=== PATIENT | male | born 1970 | race African-American/Black ===

== ENCOUNTER 2020-06-24 01:02 | Inpatient (IN) | payer OTHER, SELFPAY ==
[2020-06-24] MEDS ORDERED: Morphine 4 MG/ML VIAL ONE (01:13)
[2020-06-24] MEDS ORDERED: Ondansetron PF 4 MG/2 ML Vial ONE (01:13)
[2020-06-24 01:44] LABS: Hemoglobin 14.6 g/dL (14.0-18.0); Mean Corpuscular HGB CONC 33.3 g/dL (32.0-36.0); Mean Corpuscular Hemoglobin 34.9 pg (27.0-31.0); Mean Platelet Volume 7.4 fL (7.4-10.4); Platelet Count 352 thou/uL (130-400); RBC Distribution Width 12.3 % (11.5-14.5); Red Blood Cell (RBC) Count 4.19 mill/uL (4.70-6.10); White Blood Cell (WBC) Count 14.9 thou/uL (4.8-10.8)
[2020-06-24 01:47] LABS: ALT (SGPT) 11 U/L (8-55); AST (SGOT) 17 U/L (5-34); Albumin 4.1 g/dL (3.5-5.0); Alkaline Phosphatase 85 U/L (40-110); Anion Gap 17 mmol/L (10-20); BUN (Urea Nitrogen) 7 mg/dL (8.9-20.6); Bilirubin, Direct 0.4 mg/dL (0.1-0.3); Calc. Creatinine Clearance 0 mL/min (70-130); Calcium 9.7 mg/dL (7.8-10.44); Carbon Dioxide 25 mmol/L (22-29); Chloride 97 mmol/L (98-107); Estimated GFR-MDRD 80; Glucose 175 mg/dL (70-105); Lipase 16 U/L (8-78); Potassium 3.6 mmol/L (3.5-5.1); Protein, Total 7.6 g/dL (6.0-8.3); Sodium 135 mmol/L (136-145)
[2020-06-24 01:48] LABS: Band 23 % (5-11); Lymphocytes 19 % (21-51); MDiff Complete? YES; Macrocytosis SLIGHT = 6-15 cells (100X) (0-5/hpf); Monocytes 12 % (0-10); Neutrophil 46 % (42-75)
[2020-06-24] MEDS ORDERED: HYDROmorphone 0.5 MG/0.5 ML SYRINGE ONE (01:52)
[2020-06-24] MEDS ORDERED: cefTRIAXone\\ROCEPHIN 1 GM VIAL ONE (02:03)
[2020-06-24] MEDS ORDERED: Azithromycin 500 MG VIAL ONE (02:12)
[2020-06-24] MEDS ORDERED: metroNIDAZOLE 500 MG/100 ML BAG ONE (03:10)
[2020-06-24] MEDS ORDERED: Acetaminophen 500 MG TAB ONE (03:17)
[2020-06-24] MEDS ORDERED: Vancomycin HCl 1.25 GM in Sodium Chloride 0.9% 250 ML 250 ML IVPB SCH (03:30)
--- NOTE | 2020-06-24 03:36 | PDOC.HHP ---
Hospitalist HPI - History of Present Illness abdominal pain History of Present Illness: Case of an 50y/o female with pmhx of drinker and smoker who comes to hospital due to LUQ pain. patient refers he was on his usual state of health until abount a week ago when he started with some nonquantified fever chills and some abdominal pain. he states he thought it was covid 19 for which he went and go tested for covid 19 and was negative. he states then yesterday night he started with LUQ severe pain 10/10 of squezing quality non radiating associated with nausea and vomiting. patient came for evaluation and chest ct showed bilateral pneumonia, left greater than right with a round pneumonia with a foci gas concerning for a pulmonary abscess for which hospitalist was called for further evaluation and management. Hospitalist ROS - Review of Systems All other systems reviewed; all pertinent +/- noted in HPI/Subj Hospitalist History - Past Surgical History Past Surgical History: reports: no pertinent history - Family History Family History: reports: diabetes mellitus, hypertension - Social History Smoking Status: Current every day smoker Alcohol: reports: Heavy Drugs: reports: marijuana Living Situation: With Family - Exam General Appearance: NAD, awake alert Eye: PERRL, anicteric sclera ENT: normocephalic atraumatic, no oropharyngeal lesions Neck: supple, symmetric, no JVD Heart: RRR, no murmur, no gallops Respiratory: CTAB, no wheezes, no rales Gastrointestinal: soft, non-tender, non-distended Extremities: no cyanosis, no clubbing, no edema Skin: normal turgor, no lesions, no rashes Neurological: cranial nerve grossly intact, normal sensation to touch, no weakness Musculoskeletal: normal tone, normal strength, no muscle wasting Psychiatric: normal affect, normal behavior, A&O x 3 Hospitalist Results - Labs Result Diagrams: 06/24/20 01:16 06/24/20 01:16 Lab results: WBC 14.9 thou/uL (4.8-10.8) H 06/24/20 01:16 Hgb 14.6 g/dL (14.0-18.0) 06/24/20 01:16 Hct 44.0 % (42.0-52.0) 06/24/20 01:16 MCV 105.0 fL (78.0-98.0) H 06/24/20 01:16 Plt Count 352 thou/uL (130-400) 06/24/20 01:16 Band Neuts % (Manual) 23 % (5-11) H 06/24/20 01:16 Sodium 135 mmol/L (136-145) L 06/24/20 01:16 Potassium 3.6 mmol/L (3.5-5.1) 06/24/20 01:16 Chloride 97 mmol/L (98-107) L 06/24/20 01:16 Carbon Dioxide 25 mmol/L (22-29) 06/24/20 01:16 BUN 7 mg/dL (8.9-20.6) L 06/24/20 01:16 Creatinine 1.17 mg/dL (0.7-1.3) 06/24/20 01:16 Glucose 175 mg/dL (70-105) H 06/24/20 01:16 Lactic Acid 1.6 mmol/L (0.5-2.2) 06/24/20 01:20 Calcium 9.7 mg/dL (7.8-10.44) 06/24/20 01:16 Total Bilirubin 1.0 mg/dL (0.2-1.2) 06/24/20 01:16 AST 17 U/L (5-34) 06/24/20 01:16 ALT 11 U/L (8-55) 06/24/20 01:16 Alkaline Phosphatase 85 U/L (40-110) 06/24/20 01:16 Troponin I Less than 0.010 ng/mL (< 0.028) 06/24/20 01:16 Serum Total Protein 7.6 g/dL (6.0-8.3) 06/24/20 01:16 Albumin 4.1 g/dL (3.5-5.0) 06/24/20 01:16 Lipase 16 U/L (8-78) 06/24/20 01:16 Hospitalist H&P A/P - Problem (1) Pneumonia Code(s): J18.9 - PNEUMONIA, UNSPECIFIED ORGANISM Status: Acute (2) Lung abscess Code(s): J85.2 - ABSCESS OF LUNG WITHOUT PNEUMONIA Status: Acute (3) Smoker Code(s): F17.200 - NICOTINE DEPENDENCE, UNSPECIFIED, UNCOMPLICATED Status: Acute (4) Alcohol abuse Code(s): F10.10 - ALCOHOL ABUSE, UNCOMPLICATED Status: Acute (5) Nausea & vomiting Code(s): R11.2 - NAUSEA WITH VOMITING, UNSPECIFIED Status: Acute - Plan Plan: case of an 50y/o male with the stated pmhx who present with h/s lung abscess and pneumonia pneumonia / lung abscess / sepsis - wbc 14 increaser HR with chest ct showing pneumonia and possible abscess - spesis bundes started, cultures taken ivfs given, patient started on broad sp ectrum abx - normal LA - on cefepime and vanc - nurse instructor consulted - prn o2 supplememtantion - ivfs - pain management nause vomiting - prn symptomatic tx alcohol abuse - advised to quit - thiamine 100mg - folic acid 1mg - prn ativan smoker - advised to quit
[2020-06-24] MEDS ORDERED: Lorazepam 2 MG/ML VIAL SLOW IVP PRN (03:54)
[2020-06-24] MEDS ORDERED: Calcium Carbonate 500 MG ChewTAB PO PRN (03:54)
[2020-06-24] MEDS ORDERED: Ondansetron ODT 4 MG TAB PO PRN (03:54)
[2020-06-24] MEDS ORDERED: Ondansetron PF 4 MG/2 ML Vial IVP PRN (03:54)
[2020-06-24] MEDS ORDERED: Acetaminophen 650 MG Suppository PR PRN (03:54)
[2020-06-24] MEDS ORDERED: Morphine 4 MG/ML VIAL SLOW IVP PRN (03:54)
[2020-06-24] MEDS: Sodium Chloride 0.9% 1,000 ML IV SCH ×3 (04:58→23:49)
[2020-06-24 05:51] VITALS: BMI 22.3
--- NOTE | 2020-06-24 07:28 | CT ---
PRELIMINARY REPORT/[facility]/EMERGENCY AFTER HOURS PROCEDURE: Receipt of this report by the clinical staff was confirmed with Wilmer Minaya DO by Marilu Roger on Jun 24, 2020 02:00:00 CDT. Addendum electronically signed by Marilu Roger on June 24, 2020 2:00:[address] OF THE ABDOMEN AND PELVIS WITH IV CONTRAST CLINICAL HISTORY: Left upper quadrant pain for one hour. Nausea, vomiting and diarrhea for 3 days. E valuate for obstruction versus pancreatitis. TECHNIQUE: Serial axial images obtained. Sagittal reconstructed images obtained. Coronal reconstructed images obtained. Exam is performed with 100 mL of Isovue-370 intravenous contrast. Per PQRS, CT exam is performed using one or more of the following dose reduction techniques: Automate d exposure control, adjustment of the mA and/or KV according to patient size, or use of iterative rec onstruction techniques. COMPARISON: None FINDINGS: Small bilateral pleural effusions are seen. Small consolidation in the left lower lobe is seen consistent suggesting early pneumonia. Imaging fea tures can be seen with (COVID-19) pneumonia, though are nonspecific and can occur with a variety of i nfectious and noninfectious processes. The liver, gallbladder, pancreas, spleen and bilateral kidneys are unremarkable. Negative for small bowel dilatation. Negative for free air. A normal appendix is seen. The rest of the solid organs, viscera and bones are unremarkable. IMPRESSION: 1. Early pneumonia in the left lower lobe. Small bilateral pleural effusions. Imaging features can be seen with (COVID-19) pneumonia, though are nonspecific and can occur with a variety of infectious an d noninfectious processes. 2. Negative for acute process in the abdomen or pelvis. No CT evidence for acute pancreatitis or manas l obstruction. No CT explanation for patients left upper quadrant pain. ELECTRONICALLY SIGNED BY: Missael Bradford MD Jun 24, 2020 1:54:59 AM CDT This report is intended for review by the ordering physician only, in accordance of law. If you recei ve this report in error, please call [facility] at [phone]. FINAL REPORT EMERGENCY AFTER HOURS CTA ABDOMEN AND PELVIS WITH CONTRAST: FINDINGS/IMPRESSION: I agree with the findings and impression given in the preliminary report per [facility] physici an. 1. No evidence of acute intra-abdominal/pelvic abnormality. 2. There are multifocal infiltrates seen in the right middle lobe and left lower lobe. There is a sm all left pleural effusion. POS: EAA
--- NOTE | 2020-06-24 07:29 | CT ---
PRELIMINARY REPORT/[facility]/EMERGENCY AFTER HOURS PROCEDURE: EXAM: CTA Chest with Intravenous Contrast CLINICAL HISTORY: M50, LUQ ABD PAIN X1 HOUR, N/V/D X3 DAYS. Eval obstruction v pancreatitis. TECHNIQUE: Axial CTA images of the chest with intravenous contrast. Three-dimensional MIP/volume rendered reform ations were performed. CONTRAST: With; ISOVUE 370,100mL COMPARISON: CT - CT ABDOMEN PELVIS W CON - 06/24/2020 01:29 AM CDT FINDINGS: PULMONARY ARTERIES There is no intraluminal filling defect suspicious for PE. AORTA No thoracic aortic aneurysm or dissection. LUNGS 3.3 cm mass in the left lower lobe with a focus of gas at the anterior aspect. Patchy solid opacities at the left lung base as well as in the right middle lobe which are suspicious for pneumonia. PLEURAL SPACES Small to moderate left pleural effusion. Trace right pleural effusion. HEART AND MEDIASTINUM No cardiomegaly. No significant pericardial effusion. LYMPH NODES No lymphadenopathy. BONES No focal osseous abnormality or acute fracture. CHEST WALL AND UPPER ABDOMEN Images through the upper abdomen are unremarkable. The chest wall is unremarkable. IMPRESSION: No pulmonary embolism. No thoracic aortic aneurysm or dissection. Patchy solid opacities at the left lung base as well as in the right middle lobe which are suspicious for pneumonia. 3.3 cm mass in the left lower lobe with a focus of gas at the anterior aspect. The diagnosis include s round pneumonia, cavitary lesion and/or neoplasm. Follow-up imaging is recommended in order to ens ure resolution. ELECTRONICALLY SIGNED BY: Avril Foster MD Jun 24, 2020 2:45:30 AM CDT This report is intended for review by the ordering physician only, in accordance of law. If you recei ve this report in error, please call [facility] at [phone]. FINAL REPORT EMERGENCY AFTER HOURS CTA OF THE CHEST WITH CONTRAST: FINDINGS/IMPRESSION: I agree with the findings and impression given in the preliminary report per [facility] physici an. 1. There is consolidation in the right middle lobe and left lower lobe consistent with multifocal pn eumonia. There is a round area containing gas in the left lower lobe which may represent a cavitary a bscess. There is a small adjacent pleural effusion. 2. No pulmonary thromboembolism seen on this limited exam secondary to poor timing of the contrast b olus. POS: EAA
--- NOTE | 2020-06-24 07:46 | RAD ---
EXAM: XR Chest 1 View Portable PROVIDED CLINICAL HISTORY: Left upper quadrant and epigastric pain COMPARISON: None FINDINGS: The cardiac silhouette is normal in terms of size. There is left basilar consolidation with elevation of the left hemidiaphragm and left pleural fluid. The right lung appears clear. There is no evidence for pneumothorax. IMPRESSION: Left basilar pneumonia with associated pleural effusion. Please correlate with subsequently performed CT examination.
[2020-06-24] MEDS ORDERED: Loratadine 10 MG TAB PO PRN (07:54)
[2020-06-24] MEDS ORDERED: Loperamide HCl 2 MG CAP PO PRN (07:54)
[2020-06-24] MEDS ORDERED: Zolpidem Tartrate 5 MG TAB PO PRN (07:54)
[2020-06-24] MEDS ORDERED: Sodium Chloride 0.65% Nasal 44 ML BOT EA NARE PRN (07:54)
[2020-06-24] MEDS ORDERED: hydrALAZINE 20 MG/ML VIAL SLOW IVP PRN (07:54)
[2020-06-24] MEDS ORDERED: Cepastat Lozenges 1 LOZ PO PRN (07:54)
[2020-06-24] MEDS: Thiamine 100 MG TAB PO SCH (08:30)
[2020-06-24] MEDS: Cefepime 2 GM in Sodium Chloride 0.9% 100 ML IVPB SCH ×2 (08:30→22:06)
[2020-06-24] MEDS: Folic Acid 1 MG TAB PO SCH (08:30)
[2020-06-24] MEDS: Enoxaparin Sodium 40 MG/0.4 ML SYRINGE SC SCH (08:31)
[2020-06-24] MEDS ORDERED: Vancomycin 1 GM in Premix Bag 1 BAG IVPB SCH (09:00)
--- NOTE | 2020-06-24 10:50 | PDOC.HOSPP ---
- Subjective Encounter Date: 06/24/20 Encounter Time: 08:50 Subjective: Patient has left-sided pleuritic chest pain, patient has cough and fever. - Objective Vital Signs & Weight: Vital Signs (12 hours) Temp Pulse Resp BP Pulse Ox 06/24/20 08:20 96 06/24/20 07:33 99.3 F 103 H 14 124/84 96 06/24/20 05:00 97 06/24/20 04:38 100.1 F H 105 H 20 136/87 97 Weight Weight 146 lb 12.8 oz Result Diagrams: 06/24/20 01:16 06/24/20 01:16 Radiology Reviewed by me: Yes Hospitalist ROS - Review of Systems Constitutional: reports: fever, weakness. denies: chills, sweats, malaise, other Respiratory: reports: cough, SOB with excertion, pleuritic pain. denies: dry, shortness of breath, hemoptysis, sputum, wheezing, other Cardiovascular: denies: chest pain, palpitations, orthopnea, paroxysmal noc. dyspnea, edema, light headedness, other Gastrointestinal: denies: nausea, vomiting, abdominal pain, diarrhea, constipation, melena, hematochezia, other Genitourinary: denies: dysuria, frequency, incontinence, hematuria, retention, other Musculoskeletal: denies: neck pain, shoulder pain, arm pain, back pain, hand pain, leg pain, foot pain, other - Medication Medications: Active Medications Generic Name Dose Route Start Last Admin Trade Name Freq PRN Reason Stop Dose Admin Enoxaparin Sodium 40 mg 06/24/20 09:00 06/24/20 08:31 Enoxaparin Sodium 40 Mg/0.4 Ml Syringe SC 40 mg 0900 ROSALES Administration Folic Acid 1 mg 06/24/20 09:00 06/24/20 08:30 Folic Acid 1 Mg Tab PO 1 mg DAILY ROSALES Administration Sodium Chloride 1,000 mls @ 70 mls/hr 06/24/20 04:15 06/24/20 04:58 Normal Saline 0.9% IV 1,000 mls .[id number] ROSALES Administration Cefepime HCl 2 gm/ Sodium 100 mls @ 200 mls/hr 06/24/20 09:00 06/24/20 08:30 Chloride IVPB 100 mls Q12HR ROSALES Administration Sodium Chloride 10 ml 06/24/20 09:00 06/24/20 08:31 Flush - Normal Saline 10 Ml Syringe IVF Not Given Q12HR ROSALES Thiamine HCl 100 mg 06/24/20 09:00 06/24/20 08:30 Thiamine 100 Mg Tab PO 100 mg DAILY ROSALES Administration - Exam General Appearance: NAD, awake alert Eye: PERRL, anicteric sclera ENT: normocephalic atraumatic, no oropharyngeal lesions Neck: supple, symmetric, no JVD, no thyromegaly Heart: RRR, no murmur, no gallops, no rubs Respiratory: no wheezes Respiratory - other findings: Left-sided basilar rales Gastrointestinal: soft, non-tender, non-distended, normal bowel sounds Extremities: no cyanosis, no clubbing, no edema Skin: normal turgor, no lesions Neurological: no focal deficits Musculoskeletal: normal tone, normal strength Psychiatric: normal affect, normal behavior Hosp A/P (1) Sepsis Code(s): A41.9 - SEPSIS, UNSPECIFIED ORGANISM Status: Acute Qualifiers: Sepsis type: sepsis due to unspecified organism Sepsis acute organ dysfu nction status: without acute organ dysfunction Qualified Code(s): A41.9 - Sepsis, unspecified organism (2) Left lower lobe pneumonia Code(s): J18.9 - PNEUMONIA, UNSPECIFIED ORGANISM Status: Acute Qualifiers: Pneumonia type: due to unspecified organism Qualified Code(s): J18.9 - Pneumonia, unspecified organism (3) Lung abscess Code(s): J85.2 - ABSCESS OF LUNG WITHOUT PNEUMONIA Status: Acute Qualifiers: Pulmonary abscess pneumonia presence: with pneumonia Laterality: left Lung location: lower lobe of lung Qualified Code(s): J85.1 - Abscess of lung with pneumonia (4) Tobacco abuse disorder Code(s): Z72.0 - TOBACCO USE Status: Chronic (5) Alcohol abuse Code(s): F10.10 - ALCOHOL ABUSE, UNCOMPLICATED Status: Chronic - Plan old records reviewed/req, continue antibiotics, respiratory therapy, DVT proph w/lovenox Plan Continue cefepime and vancomycin Continue IV fluid Pulmonology has been consulted Repeat labs tomorrow Follow-up on COVID-19 test result Medication reviewed and continue provide symptomatic and supportive care. Counseling provided to avoid alcohol and tobacco abuse Start diet
[2020-06-24 11:09] LABS: SARS-CoV-2 MS2 Positive; SARS-CoV-2 N Gene Negative; SARS-CoV-2 S Gene Negative; SARS-CoV-2 by NAA Not Detected (NotDetected); SARS-CoV-2 orf1ab Negative
[2020-06-24] MEDS: HYDROcodone/Acetaminophen 10/325 mg Tablet PO PRN ×3 (12:42→23:45)
[2020-06-24 15:19] LABS: Bacteria/HPF None Seen HPF (None Seen); Bilirubin Negative (Negative); Blood, Urine Negative (Negative); Clarity Clear (Clear); Glucose, Urine (Dipstick) Normal (Negative); Ketone, Urine Trace mg/dL (Negative); Leukocyte Negative Leu/uL (Negative); Nitrite Negative (Negative); Protein, Urine (Dipstick) 30 mg/dL (Neg-Trace); RBC/HPF 0-3 HPF (0-3); Squamous Epithelial None Seen HPF (0-3); WBC/HPF 0-3 HPF (0-3)
[2020-06-24 15:21] LABS: Urine Culture Reflex No No
[2020-06-24] MEDS ORDERED: methylPREDNISolone Sod Succ/PF 125 MG/2 ML VIAL IVP SCH (18:45)
[2020-06-24] MEDS: Acetaminophen 325 MG TAB PO PRN (19:38)
[2020-06-24] MEDS: Diabetic Tussin 200 MG/10 ML UDCUP PO PRN (23:45)
[2020-06-24] MEDS: Vancomycin 1 GM in Premix Bag 1 BAG IVPB SCH (23:45)
[2020-06-24] MEDS: Senokot S 8.6-50 MG TAB PO PRN (23:45)
--- NOTE | 2020-06-25 01:04 | CON ---
DATE OF CONSULTATION: 06/24/2020 HISTORY OF PRESENT ILLNESS: Mr. Mancilla is a 50-year-old male. 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 He presented with complaints of pleuritic chest discomfort, fever, chills, and cough. He has screened for COVID and was negative. Chest radiograph shows findings consistent with a lung abscess in his left lower lobe. He admits to "partying hard." He drinks 5/7 nights a week. PAST MEDICAL HISTORY: Otherwise unremarkable. SOCIAL HISTORY: He is a smoker and a heavy drinker. He declined to comment on how much he drank in the evening and uses marijuana. FAMILY HISTORY: Negative for lung disease. Positive for diabetes and hypertension. REVIEW OF SYSTEMS: Otherwise negative. PHYSICAL EXAMINATION: GENERAL: A pleasant gentleman. He has poor dentition. VITAL SIGNS: Temperature is 102.9, heart rates 114 with his fever, respiratory rate is 18, oximetry is 93% on room air, blood pressure 130/90. HEENT: Pupils are equal. Sclerae anicteric. NECK: Supple. No lymphadenopathy. LUNGS: Clear. HEART: Regular rhythm. S1, S2 are normal. ABDOMEN: Soft and nontender. EXTREMITIES: Without clubbing, cyanosis, or edema. IMPRESSION: Lung abscess, likely secondary to either his poor dentition or more likely his heavy alcohol intake on a weekly basis. We had a long discussion about this. He says he is feeling better than when he was admitted, arguing that even though he is still febrile, his antibiotic choice is appropriate. We will give him a dose of steroids, which will help with his pleurisy as he says he cannot take a deep breath. Follow the other physicians caring for him. TIME SPENT: This is a 50-minute consult, 50% of the time spent on the unit coordinating care. Job ID: [id number] [facility]
[2020-06-25] MEDS: Benzonatate 100 MG CAP PO PRN (04:53)
[2020-06-25 06:40] LABS: ALT (SGPT) 11 U/L (8-55); AST (SGOT) 27 U/L (5-34); Albumin 3.2 g/dL (3.5-5.0); Alkaline Phosphatase 70 U/L (40-110); Anion Gap 12 mmol/L (10-20); BUN (Urea Nitrogen) 7 mg/dL (8.9-20.6); Bilirubin, Total 0.6 mg/dL (0.2-1.2); Calc. Creatinine Clearance 98 mL/min (70-130); Calcium 9.3 mg/dL (7.8-10.44); Carbon Dioxide 27 mmol/L (22-29); Chloride 101 mmol/L (98-107); Estimated GFR-MDRD Greater than 90; Globulin 3.5 g/dL (2.4-3.5); Glucose 136 mg/dL (70-105); Potassium 3.9 mmol/L (3.5-5.1); Protein, Total 6.7 g/dL (6.0-8.3); Sodium 136 mmol/L (136-145)
[2020-06-25 06:48] LABS: Hemoglobin 13.2 g/dL (14.0-18.0); Mean Corpuscular HGB CONC 33.4 g/dL (32.0-36.0); Mean Corpuscular Hemoglobin 35.5 pg (27.0-31.0); Mean Platelet Volume 7.4 fL (7.4-10.4); Platelet Count 356 thou/uL (130-400); RBC Distribution Width 12.3 % (11.5-14.5); Red Blood Cell (RBC) Count 3.73 mill/uL (4.70-6.10); White Blood Cell (WBC) Count 20.2 thou/uL (4.8-10.8)
[2020-06-25 06:49] LABS: Band 20 % (5-11); Lymphocytes 8 % (21-51); MDiff Complete? YES; Monocytes 9 % (0-10); Myelocyte 1 % (0-0); Neutrophil 62 % (42-75)
[2020-06-25] MEDS: HYDROcodone/Acetaminophen 10/325 mg Tablet PO PRN ×2 (09:21→17:47)
[2020-06-25] MEDS: Cefepime 2 GM in Sodium Chloride 0.9% 100 ML IVPB SCH (09:22)
[2020-06-25] MEDS: Folic Acid 1 MG TAB PO SCH (09:22)
[2020-06-25] MEDS: Enoxaparin Sodium 40 MG/0.4 ML SYRINGE SC SCH (09:22)
[2020-06-25] MEDS: Thiamine 100 MG TAB PO SCH (09:22)
[2020-06-25 10:20] LABS: Vancomycin, Trough 6.9 ug/mL
[2020-06-25] MEDS ORDERED: metroNIDAZOLE 500 MG in Premix Bag 1 BAG IVPB SCH (11:00)
[2020-06-25] MEDS: Vancomycin 1 GM in Premix Bag 1 BAG IVPB SCH (11:57)
[2020-06-25] MEDS ORDERED: Vancomycin 1 GM in Premix Bag 1 BAG IVPB SCH (12:00)
[2020-06-25] MEDS ORDERED: Meropenem 1 GM in Sodium Chloride 0.9% 100 ML IVPB SCH (14:00)
[2020-06-25 14:48] LABS: HBSAg Index 0.21 S/CO (0-0.99); HIV (1/2) Antibody/Antigen Non-Reactive (NonReactive); HIV 1/2 INDEX 0.21 S/CO (<1.00); Hep B Surf Ag Non-Reactive S/CO (NonReactive); Hep C IgG Ab Non-Reactive (NonReactive)
[2020-06-25] MEDS: MEROPENEM 1 GM/50 ML 1 GM in Premix Bag 1 BAG IVPB SCH ×2 (14:54→21:30)
--- NOTE | 2020-06-25 15:04 | CON ---
DATE OF CONSULTATION: 06/25/2020 REASON FOR CONSULTATION: Lung abscess. HISTORY OF PRESENT ILLNESS: A 50-year-old, who has a history that is fairly unremarkable with no past medical issues or surgical issues. He drinks almost daily and smokes daily and was well until about 6 to 7 days before admission, when he developed a fever, general malaise, and cough with some sputum production, but no hemoptysis. Some general malaise. No abdominal pain. No genitourinary symptoms. No joint symptoms or neurological symptoms. No headaches. MEDICAL HISTORY: Negative. SURGICAL HISTORY: Negative. 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 He smokes daily. He drinks 5 out of 7 days of the week. He is heterosexual. ALLERGIES: NONE. FAMILY HISTORY: Noncontributory. He grew up in this town. PHYSICAL EXAMINATION: VITAL SIGNS: Temperature has remained high anywhere from 100.1 to 102.9, pulse 101, respirations 16, O2 saturation 90 to 97. SKIN: Normal. The patient has peripheral IV access. Voiding in the toilet. No lymphadenopathy. HEENT: Ocular movements conjugate. Oral cavity with quite a few teeth in place and with a few areas of decay. Few missing teeth in the upper maxilla. Oral cavity otherwise normal. NECK: Supple. LUNGS: Diminished breath sounds in the left base, few crackles there. No wheezing. HEART: S1 and S2, regular rate. No S3 or S4. ABDOMEN: Soft. Not distended or tender. No ascites. No bladder distention. : No genital abnormalities. MUSCULOSKELETAL: No joint inflammatory activity. No edema. Pulses 1+ in dorsalis pedis. Plantar responses are flexor. Moves all extremities equally. NEUROLOGIC: Cognitive function appears to be intact. LABORATORY DATA: White cell count started at 14.9, is up to 20.2; hemoglobin 14; platelets 352; with 22% bands and now still 20% bands. Creatinine 0.86. Liver profile normal. Albumin down from 4.1 to 3.2. Lipase 16. Urinalysis was normal. Vancomycin trough 6.9. SARS-CoV-2 PCR negative. The patient had a chest CT on admission and it showed consolidation in right middle lobe and left lower lobe consistent with multifocal pneumonia, round area containing gas in the left lower lobe which may represent a cavitary abscess. Abdomen and pelvis CT was also done and it showed again the lung findings, but nothing else in the abdomen or pelvis. No evidence of pancreatitis. ASSESSMENT: Pneumonia with lung abscess in left lower lobe in the setting of possible alcohol dependence syndrome. DISCUSSION: The differential diagnosis includes anaerobic lung abscess versus gram-negative phillip associated lung abscess including the possibility of Klebsiella pneumoniae. Staphylococcus aureus abscess/MRSA is less likely since usually those patients are bacteremic, although the blood cultures are still pending. At this point, we will switch him to meropenem, discontinue vancomycin and Flagyl, and he may develop an empyema on the left side and may need decortication depending on clinical and radiological progress. Other than that, he will need long-term therapy, initially IVs and then transition to oral administration of treatment. Check HIV and hepatitis serology and RPR. Job ID: [id number]
[2020-06-25 15:22] LABS: Syphilis Antibody Nonreactive (Nonreactive); Syphilis Antibody Index 0.02 S/CO (<1.00 Non-Reactive)
--- NOTE | 2020-06-25 15:48 | PDOC.HOSPP ---
- Subjective Encounter Date: 06/25/20 Subjective: Hosp A/P (1) Sepsis Code(s): A41.9 - SEPSIS, UNSPECIFIED ORGANISM Status: Acute Qualifiers: Sepsis type: sepsis due to unspecified organism Sepsis acute organ dysfunction status: without acute organ dysfunction Qualified Code(s): A41.9 - Sepsis, unspecified organism (2) Left lower lobe pneumonia Code(s): J18.9 - PNEUMONIA, UNSPECIFIED ORGANISM Status: Acute Qualifiers: Pneumonia type: due to unspecified organism Qualified Code(s): J18.9 - Pneumonia, unspecified organism (3) Lung abscess Code(s): J85.2 - ABSCESS OF LUNG WITHOUT PNEUMONIA Status: Acute Qualifiers: Pulmonary abscess pneumonia presence: with pneumonia Laterality: left Lung location: lower lobe of lung Qualified Code(s): J85.1 - Abscess of lung with pneumonia (4) Tobacco abuse disorder Code(s): Z72.0 - TOBACCO USE Status: Chronic (5) Alcohol abuse Code(s): F10.10 - ALCOHOL ABUSE, UNCOMPLICATED Status: Chronic - Plan Patient remains febrile and leukocytosis is worsening. His current IV antibiotic coverage did not include anaerobes which are a likely culprit in lung abscess. Antibiotics were changed to IV meropenem. Appreciate ID. - Objective Vital Signs & Weight: Vital Signs (12 hours) Temp Pulse Resp BP Pulse Ox 06/25/20 15:35 101.0 F H 109 H 15 148/89 H 91 L 06/25/20 12:00 99.8 F H 101 H 16 135/91 H 90 L 06/25/20 09:00 97 06/25/20 07:34 101.1 F H 104 H 17 148/99 H 97 06/25/20 04:45 99.5 F 101 H 28 H 137/92 H 98 Weight Admit Weight 146 lb 12.8 oz Weight 146 lb 12.8 oz I&O: 06/24/20 06/25/20 06/26/20 06:59 06:59 06:59 Intake Total 5240 Balance 5240 Result Diagrams: 06/25/20 05:41 06/25/20 05:41 Hospitalist ROS - Medication Medications: Active Medications Generic Name Dose Route Start Last Admin Trade Name Freq PRN Reason Stop Dose Admin Acetaminophen 650 mg 06/24/20 03:54 06/24/20 19:38 Acetaminophen 325 Mg Tab PO 650 mg Q4H PRN Administration Headache/Fever/Mild Pain (1-3) Hydrocodone Bitart/Acetaminophen 1 tab 06/24/20 03:54 06/25/20 09:21 Hydrocodone/Acetaminophen 10/325 Mg Tablet PO 1 tab Q4H PRN Administration Moderate Pain (4-6) Hydrocodone Bitart/Acetaminophen 2 tab 06/24/20 03:54 06/24/20 17:09 Hydrocodone/Acetaminophen 10/325 Mg Tablet PO 2 tab Q4H PRN Administration Severe Pain (7-10) Benzonatate 100 mg 06/24/20 07:54 06/25/20 04:53 Benzonatate 100 Mg Cap PO 100 mg Q6H PRN Administration Cough Enoxaparin Sodium 40 mg 06/24/20 09:00 06/25/20 09:22 Enoxaparin Sodium 40 Mg/0.4 Ml Syringe SC 40 mg 0900 ROSALES Administration Folic Acid 1 mg 06/24/20 09:00 06/25/20 09:22 Folic Acid 1 Mg Tab PO 1 mg DAILY ROSALES Administration Guaifenesin 200 mg 06/24/20 07:54 06/24/20 23:45 Diabetic Tussin 200 Mg/10 Ml Udcup PO 200 mg Q4H PRN Administration Cough Sodium Chloride 1,000 mls @ 70 mls/hr 06/24/20 04:15 06/24/20 23:49 Normal Saline 0.9% IV 1,000 mls .[id number] ROSALES Administration Meropenem 1 gm/ Device 50 mls @ 100 mls/hr 06/25/20 14:00 06/25/20 14:54 IVPB 50 mls Q8HR ROSALES Administration Senna/Docusate Sodium 2 tab 06/24/20 07:54 06/24/20 23:45 Senokot S 8.6-50 Mg Tab PO 2 tab BID PRN Administration Constipation Sodium Chloride 10 ml 06/24/20 09:00 06/25/20 09:23 Flush - Normal Saline 10 Ml Syringe IVF Not Given Q12HR ROSALES Thiamine HCl 100 mg 06/24/20 09:00 06/25/20 09:22 Thiamine 100 Mg Tab PO 100 mg DAILY ROSALES Administration
--- NOTE | 2020-06-25 17:09 | PRG ---
DATE OF SERVICE: 06/25/2020 Nikhil Mancilla continues to have temperature spikes, but the trend overall is downward. Providing clindamycin, although it could be that he just will have a slow resolution of his febrile state. He does say that he is feeling better. P.o. clindamycin or Augmentin will be a reasonable choices for him once he is afebrile, but I would continue IV antibiotics for now. We will continue to follow up. Job ID: [id number]
[2020-06-25] MEDS: Clindamycin/D5W 900 MG in Premix Bag 1 BAG IVPB SCH (17:42)
[2020-06-25] MEDS: Sodium Chloride 0.9% 1,000 ML IV SCH (17:47)
[2020-06-25] MEDS: Acetaminophen 325 MG TAB PO PRN (19:56)
[2020-06-26] MEDS: Acetaminophen 325 MG TAB PO PRN ×4 (00:08→19:57)
[2020-06-26] MEDS: Senokot S 8.6-50 MG TAB PO PRN (00:08)
[2020-06-26] MEDS: Sodium Chloride 0.9% 1,000 ML IV SCH ×2 (00:41→15:31)
[2020-06-26] MEDS: Clindamycin/D5W 900 MG in Premix Bag 1 BAG IVPB SCH ×3 (01:23→17:04)
[2020-06-26] MEDS: HYDROcodone/Acetaminophen 10/325 mg Tablet PO PRN ×2 (05:22→13:31)
[2020-06-26] MEDS: Benzonatate 100 MG CAP PO PRN ×2 (05:22→19:58)
[2020-06-26] MEDS: MEROPENEM 1 GM/50 ML 1 GM in Premix Bag 1 BAG IVPB SCH ×3 (05:24→21:38)
[2020-06-26] MEDS: Enoxaparin Sodium 40 MG/0.4 ML SYRINGE SC SCH (08:09)
[2020-06-26] MEDS: Thiamine 100 MG TAB PO SCH (08:10)
[2020-06-26] MEDS: Folic Acid 1 MG TAB PO SCH (08:10)
--- NOTE | 2020-06-26 13:27 | PDOC.HOSPP ---
- Subjective Encounter Date: 06/26/20 Subjective: Patient remains febrile and tachycardic. He still complaining of pleuritic chest pain. - Objective Vital Signs & Weight: Vital Signs (12 hours) Temp Pulse Resp BP BP Pulse Ox 06/26/20 13:17 101.6 F H 108 H 06/26/20 12:00 100.6 F H 120 H 17 132/92 H 96 06/26/20 10:58 101.2 F H 06/26/20 10:57 101.2 F H 06/26/20 08:06 108 H 144/98 H 06/26/20 08:00 93 L 06/26/20 07:43 99.2 F 108 H 17 149/100 H 93 L 06/26/20 04:31 98.1 F 122 H 18 162/98 H 95 Weight Admit Weight 146 lb 12.8 oz Weight 146 lb 12.8 oz I&O: 06/25/20 06/26/20 06/27/20 06:59 06:59 06:59 Intake Total 5240 2850 Balance 5240 2850 Result Diagrams: 06/25/20 05:41 06/25/20 05:41 Hospitalist ROS - Medication Medications: Active Medications Generic Name Dose Route Start Last Admin Trade Name Freq PRN Reason Stop Dose Admin Acetaminophen 650 mg 06/24/20 03:54 06/26/20 10:58 Acetaminophen 325 Mg Tab PO 650 mg Q4H PRN Administration Headache/Fever/Mild Pain (1-3) Hydrocodone Bitart/Acetaminophen 1 tab 06/24/20 03:54 06/26/20 05:22 Hydrocodone/Acetaminophen 10/325 Mg Tablet PO 1 tab Q4H PRN Administration Moderate Pain (4-6) Hydrocodone Bitart/Acetaminophen 2 tab 06/24/20 03:54 06/24/20 17:09 Hydrocodone/Acetaminophen 10/325 Mg Tablet PO 2 tab Q4H PRN Administration Severe Pain (7-10) Benzonatate 100 mg 06/24/20 07:54 06/26/20 05:22 Benzonatate 100 Mg Cap PO 100 mg Q6H PRN Administration Cough Enoxaparin Sodium 40 mg 06/24/20 09:00 06/26/20 08:09 Enoxaparin Sodium 40 Mg/0.4 Ml Syringe SC 40 mg 0900 ROSALES Administration Folic Acid 1 mg 06/24/20 09:00 06/26/20 08:10 Folic Acid 1 Mg Tab PO 1 mg DAILY ROSALES Administration Guaifenesin 200 mg 06/24/20 07:54 06/24/20 23:45 Diabetic Tussin 200 Mg/10 Ml Udcup PO 200 mg Q4H PRN Administration Cough Sodium Chloride 1,000 mls @ 70 mls/hr 06/24/20 04:15 06/26/20 00:41 Normal Saline 0.9% IV Not Given .[id number] ROSALES Meropenem 1 gm/ Device 50 mls @ 100 mls/hr 06/25/20 14:00 06/26/20 05:24 IVPB 50 mls Q8HR ROSALES Administration Clindamycin Phosphate/Dextrose 50 mls @ 100 mls/hr 06/25/20 17:00 06/26/20 08:09 900 mg/ Device IVPB 50 mls 0100,0900,1700 ROSALES Administration Senna/Docusate Sodium 2 tab 06/24/20 07:54 06/26/20 00:08 Senokot S 8.6-50 Mg Tab PO 2 tab BID PRN Administration Constipation Sodium Chloride 10 ml 06/24/20 09:00 06/26/20 08:10 Flush - Normal Saline 10 Ml Syringe IVF 10 ml Q12HR ROSALES Administration Thiamine HCl 100 mg 06/24/20 09:00 06/26/20 08:10 Thiamine 100 Mg Tab PO 100 mg DAILY ROSALES Administration - Exam General Appearance: awake alert ENT: normocephalic atraumatic Neck: supple, no JVD Respiratory: normal chest expansion, no tachypnea Neurological: cranial nerve grossly intact, no focal deficits Hosp A/P (1) Sepsis Code(s): A41.9 - SEPSIS, UNSPECIFIED ORGANISM Status: Acute Qualifiers: Sepsis type: sepsis due to unspecified organism Sepsis acute organ dysfunction status: without acute organ dysfunction Qualified Code(s): A41.9 - Sepsis, unspecified organism (2) Lung abscess Code(s): J85.2 - ABSCESS OF LUNG WITHOUT PNEUMONIA Status: Acute Qualifiers: Pulmonary abscess pneumonia presence: with pneumonia Laterality: left Lung location: lower lobe of lung Qualified Code(s): J85.1 - Abscess of lung with pneumonia (3) Nausea & vomiting Code(s): R11.2 - NAUSEA WITH VOMITING, UNSPECIFIED Status: Acute (4) Alcohol abuse Code(s): F10.10 - ALCOHOL ABUSE, UNCOMPLICATED Status: Chronic - Plan The patient has signs of sepsis due to lung abscess like yesterday with aspiration. He is on meropenem and clindamycin. Continue IV fluids. Culture results are pending.
--- NOTE | 2020-06-26 15:30 | PRG ---
DATE OF SERVICE: 06/26/2020 SUBJECTIVE: Mr. Mancilla is still having low-grade temperature elevations. OBJECTIVE: LUNGS: Clear. HEART: Regular rate and rhythm. ABDOMEN: Soft. He still had 20% bands yesterday on his peripheral smear. Clindamycin was added. He appears to be stable. Keep going with current antibiotics as he is feeling little better each day. Job ID: [id number]
--- NOTE | 2020-06-26 16:36 | PRG ---
DATE OF SERVICE: 06/26/2020 SUBJECTIVE: The patient looked as comfortable as he did yesterday. He is having coughing spells intermittently, sometimes with small amounts of blood. A little bit constipated. Maybe a little bit of chest pain after coughing in the left lower anterior chest. No abdominal pain. No diarrhea or genitourinary symptoms. OBJECTIVE: VITAL SIGNS: Still having steady temperature elevation up to 101.6, BP 130/90, heart rate 108, respiratory rate 17, and O2 saturation 96. GENERAL: Awake, alert, oriented, pleasant. LUNGS: With diminished breath sounds in the left base. HEART: S1 and S2, regular rate. ABDOMEN: Soft. Not distended or tender. No ascites. No bladder distention. EXTREMITIES: Moves extremities equally. NEUROLOGIC: His cognitive function is perfectly intact. LABORATORY DATA: White cell count yesterday was at 20.2, hemoglobin 13, platelets 356. Creatinine 0.86. Two sets of blood culture, thus far no growth at 48 hours. We have two sputum samples with gram-negative rods, gram-positive rods in clusters and pairs. There are more than 10 epithelial cells indicating saliva as the sample rather than a proper sample. On the first specimen, there was 0 to 5 epi cells, many WBCs, and there were some gram-positive cocci in clusters. At this point, we will add linezolid to the treatment regimen, and it looks like he does have some gram-positive clusters, that could be meaningful in the face of persistent fever. Job ID: [id number]
[2020-06-26] MEDS: Linezolid 600 MG TAB PO SCH (19:58)
[2020-06-27] MEDS: Clindamycin/D5W 900 MG in Premix Bag 1 BAG IVPB SCH ×3 (00:37→16:09)
[2020-06-27] MEDS: Diabetic Tussin 200 MG/10 ML UDCUP PO PRN (00:39)
[2020-06-27] MEDS: Ibuprofen 200 MG TAB PO PRN ×2 (00:39→15:04)
[2020-06-27] MEDS: Sodium Chloride 0.9% 1,000 ML IV SCH ×2 (04:25→16:12)
[2020-06-27] MEDS: MEROPENEM 1 GM/50 ML 1 GM in Premix Bag 1 BAG IVPB SCH ×3 (05:43→22:58)
[2020-06-27 06:38] LABS: Band 15 % (5-11); Hemoglobin 11.8 g/dL (14.0-18.0); Hypochromia SLIGHT = 6-15 cells (100X) (0-5/hpf); Lymphocytes 11 % (21-51); MDiff Complete? YES; Macrocytosis SLIGHT = 6-15 cells (100X) (0-5/hpf); Mean Corpuscular HGB CONC 33.4 g/dL (32.0-36.0); Mean Corpuscular Hemoglobin 35.2 pg (27.0-31.0); Mean Platelet Volume 7.5 fL (7.4-10.4); Monocytes 7 % (0-10); Neutrophil 67 % (42-75); Platelet Count 421 thou/uL (130-400); Platelet Morphology Comment Appears Increased; RBC Distribution Width 12.6 % (11.5-14.5); Red Blood Cell (RBC) Count 3.34 mill/uL (4.70-6.10); White Blood Cell (WBC) Count 19.4 thou/uL (4.8-10.8)
[2020-06-27 06:42] LABS: Anion Gap 12 mmol/L (10-20); BUN (Urea Nitrogen) 6 mg/dL (8.9-20.6); Calc. Creatinine Clearance 100 mL/min (70-130); Calcium 8.6 mg/dL (7.8-10.44); Carbon Dioxide 29 mmol/L (22-29); Chloride 102 mmol/L (98-107); Estimated GFR-MDRD Greater than 90; Glucose 90 mg/dL (70-105); Potassium 3.3 mmol/L (3.5-5.1); Sodium 140 mmol/L (136-145)
[2020-06-27] MEDS ORDERED: Potassium Chloride 20 MEQ TAB PO SCH (08:15)
[2020-06-27] MEDS: Guaifenesin DM 100-10/5 ML UDCUP PO PRN (08:27)
[2020-06-27] MEDS: Folic Acid 1 MG TAB PO SCH (08:27)
[2020-06-27] MEDS: Thiamine 100 MG TAB PO SCH (08:27)
[2020-06-27] MEDS: Enoxaparin Sodium 40 MG/0.4 ML SYRINGE SC SCH (08:28)
[2020-06-27] MEDS: Linezolid 600 MG TAB PO SCH ×2 (08:33→20:43)
--- NOTE | 2020-06-27 09:57 | PRG ---
DATE OF SERVICE: 06/27/2020 SUBJECTIVE: Nikhil Mancilla's temperature seems to be trending down. His temperature in the last 24 hours maximum is 100.9, maximum when he came in was 102.9. He says he is feeling better and his pleurisy has gone. OBJECTIVE: VITAL SIGNS: Blood pressure 146/98. He is afebrile. Heart rate is 96, respiratory rate is 15, oximetry is 100% on 2 L. LUNGS: Clear except for distant breath sounds in the left base. HEART: Regular rhythm. ABDOMEN: Soft. LABORATORY DATA: White count 19.4, hemoglobin 11.8, platelets 421. Sodium 140, potassium 3.3, chloride 102, bicarb 29, BUN 6, creatinine 0.94. IMPRESSION: 1. Lung abscess, on two IV antibiotics at this time. 2. History of heavy alcohol abuse. 3. Very small pleural effusion on CT scan. PLAN: Continue current antimicrobial therapy, given his clinical improvement, I think we would just hold course with current IV antibiotics. Once he defervesces, p.o. antibiotics would be the next step. If he remained febrile into early next week, we will need to probably repeat a noncontrast CT scan to see if he has developed some loculated fluid on the left. Job ID: [id number]
--- NOTE | 2020-06-27 11:34 | PDOC.HOSPP ---
- Subjective Encounter Date: 06/27/20 non-verbal Subjective: Mr. Mancilla is in bed. He states he is feeling better and was able to sleep through the night and has been able to walk around. He still experiences some SOB but states it's improved significantly. States no other complaints. - Objective Vital Signs & Weight: Vital Signs (12 hours) Temp Pulse Resp BP BP Pulse Ox 06/27/20 08:00 100 06/27/20 07:24 98.6 F 114 H 15 146/98 H 100 06/27/20 04:28 98.1 F 93 18 152/99 H 100 06/27/20 00:35 100.1 F H 109 H 18 168/120 H 100 Weight Admit Weight 146 lb 12.8 oz Weight 146 lb 12.8 oz I&O: 06/26/20 06/27/20 06/28/20 06:59 06:59 06:59 Intake Total 2850 Balance 2850 Result Diagrams: 06/27/20 05:17 06/27/20 05:17 Hospitalist ROS - Review of Systems Constitutional: denies: fever, chills Respiratory: reports: cough, SOB with excertion (improved) Gastrointestinal: denies: nausea, vomiting, abdominal pain, diarrhea, constipation Neurological: denies: weakness - Medication Medications: Active Medications Generic Name Dose Route Start Last Admin Trade Name Freq PRN Reason Stop Dose Admin Acetaminophen 650 mg 06/24/20 03:54 06/26/20 19:57 Acetaminophen 325 Mg Tab PO 650 mg Q4H PRN Administration Headache/Fever/Mild Pain (1-3) Hydrocodone Bitart/Acetaminophen 1 tab 06/24/20 03:54 06/26/20 13:31 Hydrocodone/Acetaminophen 10/325 Mg Tablet PO 1 tab Q4H PRN Administration Moderate Pain (4-6) Hydrocodone Bitart/Acetaminophen 2 tab 06/24/20 03:54 06/24/20 17:09 Hydrocodone/Acetaminophen 10/325 Mg Tablet PO 2 tab Q4H PRN Administration Severe Pain (7-10) Benzonatate 100 mg 06/24/20 07:54 06/26/20 19:58 Benzonatate 100 Mg Cap PO 100 mg Q6H PRN Administration Cough Enoxaparin Sodium 40 mg 06/24/20 09:00 06/27/20 08:28 Enoxaparin Sodium 40 Mg/0.4 Ml Syringe SC 40 mg 0900 ROSALES Administration Folic Acid 1 mg 06/24/20 09:00 06/27/20 08:27 Folic Acid 1 Mg Tab PO 1 mg DAILY ROSALES Administration Guaifenesin 200 mg 06/24/20 07:54 06/27/20 00:39 Diabetic Tussin 200 Mg/10 Ml Udcup PO 200 mg Q4H PRN Administration Cough Guaifenesin/Dextromethorphan 15 ml 06/24/20 03:54 06/27/20 08:27 Guaifenesin Dm 100-10/5 Ml Udcup PO 15 ml Q4H PRN Administration Cough Sodium Chloride 1,000 mls @ 70 mls/hr 06/24/20 04:15 06/27/20 04:25 Normal Saline 0.9% IV 1,000 mls .[id number] ROSALES Administration Meropenem 1 gm/ Device 50 mls @ 100 mls/hr 06/25/20 14:00 06/27/20 05:43 IVPB 50 mls Q8HR ROSALES Administration Clindamycin Phosphate/Dextrose 50 mls @ 100 mls/hr 06/25/20 17:00 06/27/20 08:27 900 mg/ Device IVPB 50 mls 0100,0900,1700 ROSALES Administration Ibuprofen 400 mg 06/26/20 22:42 06/27/20 00:39 Ibuprofen 200 Mg Tab PO 400 mg Q6H PRN Administration Fever/Mild Pain Linezolid 600 mg 06/26/20 21:00 06/27/20 08:33 Linezolid 600 Mg Tab PO 600 mg Q12HR ROSALES Administration Senna/Docusate Sodium 2 tab 06/24/20 07:54 06/26/20 00:08 Senokot S 8.6-50 Mg Tab PO 2 tab BID PRN Administration Constipation Sodium Chloride 10 ml 06/24/20 09:00 06/27/20 08:28 Flush - Normal Saline 10 Ml Syringe IVF 10 ml Q12HR ROSALES Administration Thiamine HCl 100 mg 06/24/20 09:00 06/27/20 08:27 Thiamine 100 Mg Tab PO 100 mg DAILY ROSALES Administration - Exam General Appearance: awake alert Heart: RRR, no murmur, no gallops, no rubs, normal peripheral pulses Respiratory: no wheezes, no rales, no ronchi, no tachypnea (decreased breath sounds on LLL) Gastrointestinal: soft, non-tender, non-distended, normal bowel sounds, no palpable masses, no hepatomegaly, no splenomegaly Extremities: no cyanosis, no clubbing, no edema Psychiatric: normal affect, normal behavior, A&O x 3 Hosp A/P (1) Lung abscess Code(s): J85.2 - ABSCESS OF LUNG WITHOUT PNEUMONIA Status: Acute Qualifiers: Pulmonary abscess pneumonia presence: with pneumonia Laterality: left Lung location: lower lobe of lung Qualified Code(s): J85.1 - Abscess of lung with pneumonia (2) Smoker Code(s): F17.200 - NICOTINE DEPENDENCE, UNSPECIFIED, UNCOMPLICATED Status: Acute (3) Alcohol abuse Code(s): F10.10 - ALCOHOL ABUSE, UNCOMPLICATED Status: Chronic
--- NOTE | 2020-06-27 14:03 | PRG ---
DATE OF SERVICE: 06/27/2020 SUBJECTIVE: Looks better today. He is not diaphoretic anymore. Coughing intermittently. Still constipated. No abdominal pain. No genitourinary symptoms. No hemoptysis. OBJECTIVE: VITAL SIGNS: T-max was 100.7 yesterday at 8 p.m.. It looks like his temperature curve has a downward trend since. Pulse 101. BP 150/100. GENERAL: There is no distress, oriented, pleasant. LUNGS: With diminished breath sounds, left base. HEART: S1, S2, regular rate. ABDOMEN: Soft, not distended or tender. No ascites. No bladder distention. NEUROLOGIC: Nonfocal. LABORATORY DATA: White cell count 19.4, hemoglobin 11, platelets 421 and 15% bands. Creatinine 0.84. Blood cultures negative. Cultures were not particularly informative from the respiratory tract. ASSESSMENT AND DISCUSSION: Unremarkable past medical history except for alcohol dependency syndrome, possible alcoholism, and now lung abscess with pneumonia in both right and left lungs. The abscess is localized to the left lower lobe. Gram-negative rods versus anaerobes or polymicrobial robert and MRSA are the main possibilities. Continue meropenem and oral Zyvox. Deescalate down the road in preparation for discharge planning. Will probably need long-term IV and then transition to oral antimicrobial administration. After a few weeks, will probably need a PICC line and setting up of outpatient IV antimicrobial therapy. Job ID: [id number]
--- NOTE | 2020-06-27 15:26 | PDOC.HOSPP ---
- Subjective Encounter Date: 06/27/20 Encounter Time: 03:20 Subjective: Patient is lying in the bed. He says no discomfort when he gets up walk to the restroom. His sats are around 100% on 2 L oxygen. Lately he had a temp of 101.3. His blood pressure is in acceptable range. His white count has a slight trending down around 19,000. Potassium 3.3 being supplemented. Syphilis nonreactive so does HIV and hepatitis C and B - Objective Vital Signs & Weight: Vital Signs (12 hours) Temp Pulse Resp BP BP Pulse Ox 06/27/20 15:14 101.3 F H 99 16 142/101 H 100 06/27/20 11:36 99.1 F 101 H 16 155/105 H 98 06/27/20 08:00 100 06/27/20 07:24 98.6 F 114 H 15 146/98 H 100 06/27/20 04:28 98.1 F 93 18 152/99 H 100 Weight Admit Weight 146 lb 12.8 oz Weight 146 lb 12.8 oz I&O: 06/26/20 06/27/20 06/28/20 06:59 06:59 06:59 Intake Total 2850 Balance 2850 Result Diagrams: 06/27/20 05:17 06/27/20 05:17 Hospitalist ROS - Medication Medications: Active Medications Generic Name Dose Route Start Last Admin Trade Name Freq PRN Reason Stop Dose Admin Acetaminophen 650 mg 06/24/20 03:54 06/26/20 19:57 Acetaminophen 325 Mg Tab PO 650 mg Q4H PRN Administration Headache/Fever/Mild Pain (1-3) Hydrocodone Bitart/Acetaminophen 1 tab 06/24/20 03:54 06/26/20 13:31 Hydrocodone/Acetaminophen 10/325 Mg Tablet PO 1 tab Q4H PRN Administration Moderate Pain (4-6) Hydrocodone Bitart/Acetaminophen 2 tab 06/24/20 03:54 06/24/20 17:09 Hydrocodone/Acetaminophen 10/325 Mg Tablet PO 2 tab Q4H PRN Administration Severe Pain (7-10) Benzonatate 100 mg 06/24/20 07:54 06/26/20 19:58 Benzonatate 100 Mg Cap PO 100 mg Q6H PRN Administration Cough Enoxaparin Sodium 40 mg 06/24/20 09:00 06/27/20 08:28 Enoxaparin Sodium 40 Mg/0.4 Ml Syringe SC 40 mg 0900 ROSALES Administration Folic Acid 1 mg 06/24/20 09:00 06/27/20 08:27 Folic Acid 1 Mg Tab PO 1 mg DAILY ROSALES Administration Guaifenesin 200 mg 06/24/20 07:54 06/27/20 00:39 Diabetic Tussin 200 Mg/10 Ml Udcup PO 200 mg Q4H PRN Administration Cough Guaifenesin/Dextromethorphan 15 ml 06/24/20 03:54 06/27/20 08:27 Guaifenesin Dm 100-10/5 Ml Udcup PO 15 ml Q4H PRN Administration Cough Sodium Chloride 1,000 mls @ 70 mls/hr 06/24/20 04:15 06/27/20 04:25 Normal Saline 0.9% IV 1,000 mls .[id number] ROSALES Administration Meropenem 1 gm/ Device 50 mls @ 100 mls/hr 06/25/20 14:00 06/27/20 14:30 IVPB 50 mls Q8HR ROSALES Administration Clindamycin Phosphate/Dextrose 50 mls @ 100 mls/hr 06/25/20 17:00 06/27/20 08:27 900 mg/ Device IVPB 50 mls 0100,0900,1700 ROSALES Administration Ibuprofen 400 mg 06/26/20 22:42 06/27/20 15:04 Ibuprofen 200 Mg Tab PO 400 mg Q6H PRN Administration Fever/Mild Pain Linezolid 600 mg 06/26/20 21:00 06/27/20 08:33 Linezolid 600 Mg Tab PO 600 mg Q12HR ROSALES Administration Senna/Docusate Sodium 2 tab 06/24/20 07:54 06/26/20 00:08 Senokot S 8.6-50 Mg Tab PO 2 tab BID PRN Administration Constipation Sodium Chloride 10 ml 06/24/20 09:00 06/27/20 08:28 Flush - Normal Saline 10 Ml Syringe IVF 10 ml Q12HR ROSALES Administration Thiamine HCl 100 mg 06/24/20 09:00 06/27/20 08:27 Thiamine 100 Mg Tab PO 100 mg DAILY ROSALES Administration - Exam General Appearance: NAD, awake alert Eye: PERRL ENT: normocephalic atraumatic Neck: supple Heart: RRR, normal peripheral pulses Respiratory: CTAB, normal chest expansion Gastrointestinal: soft, normal bowel sounds Hosp A/P - Plan (1) Sepsis Code(s): A41.9 - SEPSIS, UNSPECIFIED ORGANISM Status: Acute Qualifiers: Sepsis type: sepsis due to unspecified organism Sepsis acute organ dysfunction status: without acute organ dysfunction Qualified Code(s): A41.9 - Sepsis, unspecified organism (2) Lung abscess Code(s): J85.2 - ABSCESS OF LUNG WITHOUT PNEUMONIA Status: Acute Qualifiers: Pulmonary abscess pneumonia presence: with pneumonia Laterality: left Lung location: lower lobe of lung Qualified Code(s): J85.1 - Abscess of lung with pneumonia (3) Nausea & vomiting Code(s): R11.2 - NAUSEA WITH VOMITING, UNSPECIFIED Status: Acute (4) Alcohol abuse Code(s): F10.10 - ALCOHOL ABUSE, UNCOMPLICATED Status: Chronic Leukocytosis and fever -Secondary to lung abscess--it does not appear to be drainable scenario.--Both pulmonary and ID following with us. Left lower lobe lung abscess---differentials are several but it appears he may have alcohol induced aspiration and the chronicity leading to loculation of the pneumonia -CT abdomen did not show any visceral abnormality. -Antibiotics switched to clindamycin and he is on Zyvox as well.[[Before this he was on vancomycin as well as meropenem. -Blood cultures were negative -Sputum showed gram-positive rods as well as gram-positive cocci in clusters. His white count has a drop to around 19,000. Potassium 3.3 being supplemented. Syphilis nonreactive so does HIV and hepatitis C and B - If he has a persistent fever we need to repeat his imaging studies--- will follow tomorrow -Clinically he looks nontoxic.
[2020-06-27] MEDS: Benzonatate 100 MG CAP PO PRN (20:44)
[2020-06-28] MEDS: Clindamycin/D5W 900 MG in Premix Bag 1 BAG IVPB SCH ×3 (00:45→18:07)
[2020-06-28] MEDS: Sodium Chloride 0.9% 1,000 ML IV SCH ×2 (04:16→23:42)
[2020-06-28] MEDS: Diabetic Tussin 200 MG/10 ML UDCUP PO PRN ×2 (04:16→21:11)
[2020-06-28] MEDS: Ibuprofen 200 MG TAB PO PRN (05:41)
[2020-06-28] MEDS: MEROPENEM 1 GM/50 ML 1 GM in Premix Bag 1 BAG IVPB SCH ×3 (05:41→21:07)
[2020-06-28] MEDS ORDERED: Metoprolol Tartrate 5 MG/5 ML VIAL IVP PRN (08:04)
[2020-06-28] MEDS: Amlodipine 5 MG TAB PO SCH ×2 (09:19→21:06)
[2020-06-28] MEDS: Enoxaparin Sodium 40 MG/0.4 ML SYRINGE SC SCH (09:19)
[2020-06-28] MEDS: Folic Acid 1 MG TAB PO SCH (09:20)
[2020-06-28] MEDS: Thiamine 100 MG TAB PO SCH (09:20)
[2020-06-28] MEDS: Linezolid 600 MG TAB PO SCH ×2 (09:20→21:06)
--- NOTE | 2020-06-28 11:49 | PDOC.HOSPP ---
- Subjective Encounter Date: 06/28/20 Encounter Time: 08:40 Subjective: Pt. is in bed. He states some SOB when coughing, but it does not worsen with exertion. He states he is having hemoptysis in the headmaster/mistress or when he uses the restroom. He has been able to ambulate without any issues. He states he is still experiencing watery diarrhea and had 2 episodes this morning. Appetite is good. His O2 stats are 97% on room air. He is experiencing some low-grade fevers. BP is acceptable. - Objective Vital Signs & Weight: Vital Signs (12 hours) Temp Pulse Resp BP BP Pulse Ox 06/28/20 09:25 97 06/28/20 09:19 98 154/110 H 06/28/20 07:20 99.9 F H 108 H 18 156/110 H 97 06/28/20 04:00 99.9 F H 109 H 20 168/117 H 96 06/28/20 00:00 98.3 F 103 H 20 147/93 H 95 Weight Admit Weight 146 lb 12.8 oz Weight 146 lb 12.8 oz Result Diagrams: 06/27/20 05:17 06/27/20 05:17 Hospitalist ROS - Medication Medications: Active Medications Generic Name Dose Route Start Last Admin Trade Name Freq PRN Reason Stop Dose Admin Acetaminophen 650 mg 06/24/20 03:54 06/26/20 19:57 Acetaminophen 325 Mg Tab PO 650 mg Q4H PRN Administration Headache/Fever/Mild Pain (1-3) Hydrocodone Bitart/Acetaminophen 1 tab 06/24/20 03:54 06/26/20 13:31 Hydrocodone/Acetaminophen 10/325 Mg Tablet PO 1 tab Q4H PRN Administration Moderate Pain (4-6) Hydrocodone Bitart/Acetaminophen 2 tab 06/24/20 03:54 06/24/20 17:09 Hydrocodone/Acetaminophen 10/325 Mg Tablet PO 2 tab Q4H PRN Administration Severe Pain (7-10) Amlodipine Besylate 5 mg 06/28/20 09:00 06/28/20 09:19 Amlodipine 5 Mg Tab PO 5 mg BID ROSALES Administration Benzonatate 100 mg 06/24/20 07:54 06/27/20 20:44 Benzonatate 100 Mg Cap PO 100 mg Q6H PRN Administration Cough Enoxaparin Sodium 40 mg 06/24/20 09:00 06/28/20 09:19 Enoxaparin Sodium 40 Mg/0.4 Ml Syringe SC 40 mg 0900 ROSALES Administration Folic Acid 1 mg 06/24/20 09:00 06/28/20 09:20 Folic Acid 1 Mg Tab PO 1 mg DAILY ROSALES Administration Guaifenesin 200 mg 06/24/20 07:54 06/28/20 04:16 Diabetic Tussin 200 Mg/10 Ml Udcup PO 200 mg Q4H PRN Administration Cough Guaifenesin/Dextromethorphan 15 ml 06/24/20 03:54 06/27/20 08:27 Guaifenesin Dm 100-10/5 Ml Udcup PO 15 ml Q4H PRN Administration Cough Sodium Chloride 1,000 mls @ 70 mls/hr 06/24/20 04:15 06/28/20 04:16 Normal Saline 0.9% IV 1,000 mls .[id number] ROSALES Administration Meropenem 1 gm/ Device 50 mls @ 100 mls/hr 06/25/20 14:00 06/28/20 05:41 IVPB 50 mls Q8HR ROSALES Administration Clindamycin Phosphate/Dextrose 50 mls @ 100 mls/hr 06/25/20 17:00 06/28/20 09:19 900 mg/ Device IVPB 50 mls 0100,0900,1700 ROSALES Administration Ibuprofen 400 mg 06/26/20 22:42 06/28/20 05:41 Ibuprofen 200 Mg Tab PO 400 mg Q6H PRN Administration Fever/Mild Pain Linezolid 600 mg 06/26/20 21:00 06/28/20 09:20 Linezolid 600 Mg Tab PO 600 mg Q12HR ROSALES Administration Senna/Docusate Sodium 2 tab 06/24/20 07:54 06/26/20 00:08 Senokot S 8.6-50 Mg Tab PO 2 tab BID PRN Administration Constipation Sodium Chloride 10 ml 06/24/20 09:00 06/28/20 09:20 Flush - Normal Saline 10 Ml Syringe IVF 10 ml Q12HR ROSALES Administration Thiamine HCl 100 mg 06/24/20 09:00 06/28/20 09:20 Thiamine 100 Mg Tab PO 100 mg DAILY ROSALES Administration - Exam General Appearance: NAD, awake alert Heart: RRR, no murmur, no gallops, no rubs, normal peripheral pulses Respiratory: CTAB, no wheezes, no rales, no ronchi, normal chest expansion, no tachypnea Respiratory - other findings: decreased breath sounds LLL Gastrointestinal: soft, non-tender, non-distended, normal bowel sounds, no palpable masses, no hepatomegaly, no splenomegaly Extremities: no cyanosis, no clubbing, no edema Psychiatric: normal affect, normal behavior, A&O x 3 Hosp A/P (1) Sepsis Code(s): A41.9 - SEPSIS, UNSPECIFIED ORGANISM Status: Acute Qualifiers: Sepsis type: sepsis due to unspecified organism Sepsis acute organ dysfunction status: without acute organ dysfunction Qualified Code(s): A41.9 - Sepsis, unspecified organism (2) Lung abscess Code(s): J85.2 - ABSCESS OF LUNG WITHOUT PNEUMONIA Status: Acute Qualifiers: Pulmonary abscess pneumonia presence: with pneumonia Laterality: left Lung location: lower lobe of lung Qualified Code(s): J85.1 - Abscess of lung with pneumonia (3) Nausea & vomiting Code(s): R11.2 - NAUSEA WITH VOMITING, UNSPECIFIED Status: Acute (4) Alcohol abuse Code(s): F10.10 - ALCOHOL ABUSE, UNCOMPLICATED Status: Chronic - Plan Leukocytosis and fever -Secondary to lung abscess--it does not appear to be drainable scenario.--Both pulmonary and ID following with us. Left lower lobe lung abscess--differentials include: Aspiration: Pt. drinks 12pk/day with jagor shots; episode of vomiting on admission; LLL abscess unusual location Empyema also in the differential we have to check pleural fluid analysis and if pH is less than 7.2 and Gram stain is positive very likely he has empyema. That has to be ruled out if he clinically get worse he needs thoracentesis. Malignancy: Pt. is smoker 1pk/day since 16 yo; fhx negative for lung cancer, patient denies weight loss; he does have a trace hemoptysis intermittently. Endemic Fungi: Pt denies travel history within last 6 months--so low threshold for cocci and histo Mycobacteria: pt denies visiting prisons however pt. considered immunocompromised due to heavy alcohol use -We will get the QuantiFERON test tomorrow. They do not do it today in the lab. -CT abdomen did not show any visceral abnormality. -Antibiotics switched to clindamycin and he is on Zyvox and meropenem as well.[Before this was on vacomycin and meropenem) -Blood cultures were negative -Sputum showed gram-positive rods as well as gram-positive cocci in clusters. -Syphilis nonreactive so does HIV and hepatitis C and B -Discussed with Dr. Garay. --Ordering CBC w/differential to monitor WBC. -quantiFERON to rule out TB. -Ordering sed rate and procalcitonin -Chest CT w and wo contrast ordered due to continued low-grade fevers
[2020-06-28] MEDS ORDERED: Iopamidol-370 76% 500 ML 1 ML ONE (15:23)
--- NOTE | 2020-06-28 17:51 | PRG ---
DATE OF SERVICE: 06/28/2020 HISTORY OF PRESENT ILLNESS: He continues to have intermittent low-grade fever. He is having some chest discomfort on the left, but not dramatic. He has had intermittent blood-streaked sputum. He has had no feculent sputum. He is on broad-spectrum antibiotic coverage with clindamycin, Zyvox. PHYSICAL EXAMINATION: VITAL SIGNS: Blood pressure 157/108, temperature 100.4, heart rate 101, respiratory rate is 18, saturation 96% on room air. GENERAL: He is awake. NECK: He has no JVD or adenopathy. LUNGS: He has decreased breath sounds with dullness in the left posterior chest. HEART: Regular rate and rhythm. ABDOMEN: Soft. There is no organomegaly. He has no edema. LABORATORY DATA: White count yesterday was 19,000, and he had 67 neutrophils and 15 bands. His cultures have been negative from blood and sputum is poor specimen with multiple different colonies identified. IMAGING STUDIES: CT appears to show an increase in the left pleural effusion as well as the abscess cavity in the left mid lung. IMPRESSION AND PLAN: 1. Pneumonia with abscess. 2. Pleural effusion increased in size. 3. Persistent fever. He does have some increase in pleural fluid and I think that a diagnostic and therapeutic thoracentesis are indicated. I am going to talk to him about doing a thoracentesis this evening. Hopefully, he does not have an empyema, but I would not be particularly surprised given his persistent fever and leukocytosis. We will pursue additional studies as indicated. Job ID: [id number]
--- NOTE | 2020-06-28 19:23 | CT ---
CT CHEST WITH IV CONTRAST: 06/28/20 PROVIDED CLINICAL HISTORY: Follow-up lung abscess. FINDINGS: Comparison is made with the examination dated 06/24/20. The heart, pericardium and great vessels demo nstrates an unremarkable CT appearance. There is persistent consolidation involving the left lower lobe. The round area of fluid density with internal gas in the left lower lobe consolidation is redemonstrated, without significant interval ch hunter with respect to prior. There has been interval increased in the degree of left pleural fluid. Th ere is no evidence for pleural enhancement. There is interval increase in right pleural fluid, though it remains small in degree. There are new patchy areas of reticulonodular opacity involving the righ t upper lobe and right lower lobe with developing consolidation at the right lung base. There is no evidence for thoracic lymph node enlargement. The visualized portions of the upper abdomen appear unremarkable. The osseous structures demonstrate no concerning lytic or blastic lesions. IMPRESSION: 1. Persistent left lower lobe fluid and gas collection compatible with parenchymal abscess. 2. Interval increase in bilateral pleural fluid without evidence for pleural enhancement. 3. Interval development of extensive multifocal air space disease involving the right lung ottoniel tible with pneumonia . POS: LISETTE
[2020-06-28] MEDS: Benzonatate 100 MG CAP PO PRN (23:42)
[2020-06-29] MEDS: Clindamycin/D5W 900 MG in Premix Bag 1 BAG IVPB SCH ×3 (01:56→17:41)
[2020-06-29] MEDS: MEROPENEM 1 GM/50 ML 1 GM in Premix Bag 1 BAG IVPB SCH ×3 (06:27→20:47)
[2020-06-29] MEDS: Thiamine 100 MG TAB PO SCH (07:44)
[2020-06-29] MEDS: Folic Acid 1 MG TAB PO SCH (07:45)
[2020-06-29] MEDS: Amlodipine 5 MG TAB PO SCH ×2 (07:45→20:46)
[2020-06-29] MEDS: Enoxaparin Sodium 40 MG/0.4 ML SYRINGE SC SCH (07:45)
[2020-06-29] MEDS: Benzonatate 100 MG CAP PO PRN (07:53)
[2020-06-29] MEDS: Diabetic Tussin 200 MG/10 ML UDCUP PO PRN (07:53)
[2020-06-29] MEDS: Linezolid 600 MG TAB PO SCH ×2 (07:54→20:46)
[2020-06-29 10:32] LABS: Hemoglobin 11.6 g/dL (14.0-18.0); Mean Corpuscular HGB CONC 34.6 g/dL (32.0-36.0); Mean Corpuscular Hemoglobin 35.9 pg (27.0-31.0); Mean Platelet Volume 6.8 fL (7.4-10.4); Platelet Count 600 thou/uL (130-400); RBC Distribution Width 12.7 % (11.5-14.5); Red Blood Cell (RBC) Count 3.24 mill/uL (4.70-6.10); White Blood Cell (WBC) Count 17.1 thou/uL (4.8-10.8)
[2020-06-29 10:42] LABS: Anion Gap 15 mmol/L (10-20); BUN (Urea Nitrogen) 5 mg/dL (8.9-20.6); Calc. Creatinine Clearance 114 mL/min (70-130); Calcium 8.6 mg/dL (7.8-10.44); Carbon Dioxide 25 mmol/L (22-29); Chloride 102 mmol/L (98-107); Estimated GFR-MDRD Greater than 90; Glucose 85 mg/dL (70-105); Potassium 3.2 mmol/L (3.5-5.1); Sodium 139 mmol/L (136-145)
[2020-06-29 10:54] LABS: Band 1 % (5-11); Eosinophils 4 % (0-10); Hypersemented Neutrophil SLIGHT; Lymphocytes 10 % (21-51); MDiff Complete? YES; Monocytes 12 % (0-10); Neutrophil 72 % (42-75); Ovalocytes SLIGHT = 2-5 cells (100X) (0-1/hpf); Platelet Morphology Comment Appears Increased; Polychromasia SLIGHT = 2-3 cells (100X) (0-2/hpf); Target Cells SLIGHT = 2-5 cells (100X) (0-1/hpf)
--- NOTE | 2020-06-29 14:10 | PDOC.HOSPP ---
- Subjective Encounter Date: 06/29/20 Encounter Time: 11:00 Subjective: Patient doing well he does not have any acute complaints today. CT report reviewed. There was a diagnostic thoracentesis done yesterday appreciate the help from pulmonology. There was not much fluid removed per patient. - Objective Vital Signs & Weight: Vital Signs (12 hours) Temp Pulse Resp BP BP BP Pulse Ox 06/29/20 11:35 98.8 F 89 20 159/108 H 97 06/29/20 07:55 95 06/29/20 07:45 91 167/117 H 06/29/20 07:33 98.6 F 96 20 163/108 H 95 06/29/20 05:00 98.1 F 95 18 158/104 H 99 Weight Admit Weight 146 lb 12.8 oz Weight 146 lb 12.8 oz I&O: 06/28/20 06/29/20 06/30/20 07:59 06:59 06:59 Intake Total Balance Result Diagrams: 06/29/20 09:58 06/29/20 09:58 Hospitalist ROS - Medication Medications: Active Medications Generic Name Dose Route Start Last Admin Trade Name Freq PRN Reason Stop Dose Admin Acetaminophen 650 mg 06/24/20 03:54 06/26/20 19:57 Acetaminophen 325 Mg Tab PO 650 mg Q4H PRN Administration Headache/Fever/Mild Pain (1-3) Hydrocodone Bitart/Acetaminophen 1 tab 06/24/20 03:54 06/26/20 13:31 Hydrocodone/Acetaminophen 10/325 Mg Tablet PO 1 tab Q4H PRN Administration Moderate Pain (4-6) Hydrocodone Bitart/Acetaminophen 2 tab 06/24/20 03:54 06/24/20 17:09 Hydrocodone/Acetaminophen 10/325 Mg Tablet PO 2 tab Q4H PRN Administration Severe Pain (7-10) Amlodipine Besylate 5 mg 06/28/20 09:00 06/29/20 07:45 Amlodipine 5 Mg Tab PO 5 mg BID ROSALES Administration Benzonatate 100 mg 06/24/20 07:54 06/29/20 07:53 Benzonatate 100 Mg Cap PO 100 mg Q6H PRN Administration Cough Enoxaparin Sodium 40 mg 06/24/20 09:00 06/29/20 07:45 Enoxaparin Sodium 40 Mg/0.4 Ml Syringe SC 40 mg 0900 ROSALES Administration Folic Acid 1 mg 06/24/20 09:00 06/29/20 07:45 Folic Acid 1 Mg Tab PO 1 mg DAILY ROSALES Administration Guaifenesin 200 mg 06/24/20 07:54 06/29/20 07:53 Diabetic Tussin 200 Mg/10 Ml Udcup PO 200 mg Q4H PRN Administration Cough Guaifenesin/Dextromethorphan 15 ml 06/24/20 03:54 06/27/20 08:27 Guaifenesin Dm 100-10/5 Ml Udcup PO 15 ml Q4H PRN Administration Cough Sodium Chloride 1,000 mls @ 70 mls/hr 06/24/20 04:15 06/28/20 23:42 Normal Saline 0.9% IV 1,000 mls .[id number] ROSALES Administration Meropenem 1 gm/ Device 50 mls @ 100 mls/hr 06/25/20 14:00 06/29/20 06:27 IVPB 50 mls Q8HR ROSALES Administration Clindamycin Phosphate/Dextrose 50 mls @ 100 mls/hr 06/25/20 17:00 06/29/20 07:49 900 mg/ Device IVPB 50 mls 0100,0900,1700 ROSALES Administration Ibuprofen 400 mg 06/26/20 22:42 06/28/20 05:41 Ibuprofen 200 Mg Tab PO 400 mg Q6H PRN Administration Fever/Mild Pain Linezolid 600 mg 06/26/20 21:00 06/29/20 07:54 Linezolid 600 Mg Tab PO 600 mg Q12HR ROSALES Administration Senna/Docusate Sodium 2 tab 06/24/20 07:54 06/26/20 00:08 Senokot S 8.6-50 Mg Tab PO 2 tab BID PRN Administration Constipation Sodium Chloride 10 ml 06/24/20 09:00 06/29/20 07:46 Flush - Normal Saline 10 Ml Syringe IVF Not Given Q12HR ROSALES Thiamine HCl 100 mg 06/24/20 09:00 06/29/20 07:44 Thiamine 100 Mg Tab PO 100 mg DAILY ROSALES Administration - Exam General Appearance: NAD, awake alert Eye: PERRL ENT: normocephalic atraumatic Neck: supple Heart: RRR Respiratory: CTAB, normal chest expansion Gastrointestinal: soft, normal bowel sounds Neurological: cranial nerve grossly intact, no focal deficits Psychiatric: A&O x 3 Hosp A/P (1) Sepsis Code(s): A41.9 - SEPSIS, UNSPECIFIED ORGANISM Status: Acute Qualifiers: Sepsis type: sepsis due to unspecified organism Sepsis acute organ dysfunction status: without acute organ dysfunction Qualified Code(s): A41.9 - Sepsis, unspecified organism (2) Lung abscess Code(s): J85.2 - ABSCESS OF LUNG WITHOUT PNEUMONIA Status: Acute Qualifiers: Pulmonary abscess pneumonia presence: with pneumonia Laterality: left Lung location: lower lobe of lung Qualified Code(s): J85.1 - Abscess of lung with pneumonia (3) Nausea & vomiting Code(s): R11.2 - NAUSEA WITH VOMITING, UNSPECIFIED Status: Acute (4) Alcohol abuse Code(s): F10.10 - ALCOHOL ABUSE, UNCOMPLICATED Status: Chronic - Plan Leukocytosis and fever -Secondary to lung abscess--it does not appear to be drainable scenario.--Both pulmonary and ID following with us. Left lower lobe lung abscess--differentials include: Aspiration: Pt. drinks 12pk/day with jagor shots; episode of vomiting on admission; LLL abscess unusual location Empyema also in the differential we have to check pleural fluid analysis and if pH is less than 7.2 and Gram stain is positive very likely he has empyema. That has to be ruled out if he clinically get worse he needs thoracentesis. Malignancy: Pt. is smoker 1pk/day since 16 yo; fhx negative for lung cancer, patient denies weight loss; he does have a trace hemoptysis intermittently. Endemic Fungi: Pt denies travel history within last 6 months--so low threshold for cocci and histo Mycobacteria: pt denies visiting prisons however pt. considered immunocompromised due to heavy alcohol use -We will get the QuantiFERON test tomorrow. They do not do it today in the lab. -CT abdomen did not show any visceral abnormality. -Antibiotics switched to clindamycin and he is on Zyvox and meropenem as well.[Before this was on vacomycin and meropenem) -Blood cultures were negative -Sputum showed gram-positive rods as well as gram-positive cocci in clusters. -Syphilis nonreactive so does HIV and hepatitis C and B -Discussed with Dr. Garay. --Ordering CBC w/differential to monitor WBC. -quantiFERON to rule out TB. -Ordering sed rate and procalcitonin -Chest CT w and wo contrast ordered due to continued low-grade fevers 1st Persistent parenchymal abscess in the left lower lobe. Increased pleural fluid Worsening pneumonia without clinical digression -Echo report reviewed EF of 55% without any wall motion and valvular abnormalities. -Diagnostic thoracentesis yesterday. - does not appear much pleural fluid removed. -He still has ongoing elevated leukocytosis. Procalcitonin level around 0.64. His C-reactive protein however quite high at 25.9. His creatinine in the normal range. Hypokalemia -Replace He has no fever and clinically nontoxic appearing. Continue with the current antibiotic management. I discussed briefly with the Dr. Garay yesterday. Accelerated hypertension -Norvasc is not helping much we will add lisinopril along with that for optimum control of his blood pressure. Probably due to the acute stress of pneumonia and lung abscess versus underlying uncontrolled hypertension
[2020-06-29] MEDS ORDERED: Potassium Chloride 20 MEQ TAB PO SCH (14:15)
[2020-06-29] MEDS: Sodium Chloride 0.9% 1,000 ML IV SCH ×2 (14:54→14:55)
--- NOTE | 2020-06-29 17:18 | PRG ---
DATE OF SERVICE: 06/29/2020 SUBJECTIVE: Mr. Mancilla is feeling about the same. He has not had any fever. He denies any cough or sputum. He denies any pleuritic pain, PND, or orthopnea. PHYSICAL EXAMINATION: VITAL SIGNS: Currently afebrile with temperature maximum 99.5, saturation 98% on room air with respiratory rate 20, and heart rate of 88, blood pressure is high at 176/116. LUNGS: He has decreased breath sounds with dullness in the left hemithorax. The right lung is clear. HEART: Regular rate and rhythm. LABORATORY DATA: White count today 17,100, hemoglobin 11.6 with hematocrit 33.6, and platelet count 600,000. Chemistry panel notable for potassium of 3.3. IMPRESSION: Left lung abscess and effusion. I attempted thoracentesis. However, the fluid is loculated or coagulated and would not drain. I think that this is probably going to be best approach by thoracotomy and decortication. The lung may ultimately require a wedge or lobe resection of the abscess for culture and expeditious treatment of the underlying pathology. PLAN: We will get a repeat x-ray tomorrow and determination to be made by the daytime service regarding consideration of thoracotomy and decortication. Job ID: [id number]
[2020-06-29] MEDS: Lisinopril 10 MG TAB PO SCH (20:46)
[2020-06-29] MEDS ORDERED: Lisinopril 20 MG TAB PO SCH (21:00)
[2020-06-30] MEDS: Clindamycin/D5W 900 MG in Premix Bag 1 BAG IVPB SCH ×3 (00:32→16:08)
[2020-06-30] MEDS: MEROPENEM 1 GM/50 ML 1 GM in Premix Bag 1 BAG IVPB SCH ×3 (05:44→21:03)
[2020-06-30] MEDS: Sodium Chloride 0.9% 1,000 ML IV SCH ×2 (05:44→16:08)
[2020-06-30] MEDS: Amlodipine 5 MG TAB PO SCH ×2 (06:24→21:03)
[2020-06-30] MEDS: Lisinopril 10 MG TAB PO SCH ×2 (06:24→21:03)
[2020-06-30 06:41] LABS: Band 5 % (5-11); Hemoglobin 11.9 g/dL (14.0-18.0); Lymphocytes 13 % (21-51); MDiff Complete? YES; Mean Corpuscular HGB CONC 33.5 g/dL (32.0-36.0); Mean Corpuscular Hemoglobin 34.6 pg (27.0-31.0); Mean Platelet Volume 6.9 fL (7.4-10.4); Monocytes 8 % (0-10); Neutrophil 74 % (42-75); Platelet Count 695 thou/uL (130-400); Platelet Morphology Comment Appears Increased; RBC Distribution Width 12.8 % (11.5-14.5); Red Blood Cell (RBC) Count 3.43 mill/uL (4.70-6.10); White Blood Cell (WBC) Count 14.8 thou/uL (4.8-10.8)
--- NOTE | 2020-06-30 06:51 | OP ---
DATE OF PROCEDURE: 06/28/2020 PROCEDURE: Left thoracentesis. PREOPERATIVE DIAGNOSIS: Increasing left pleural effusion with underlying lung abscess, rule out empyema. POSTOPERATIVE DIAGNOSIS: Increasing left pleural effusion with underlying lung abscess, rule out empyema. DESCRIPTION OF PROCEDURE: Following informed consent, the patient was placed in a seated position using a bedside table. The posterior left hemithorax was prepped and draped in the usual fashion. Local anesthesia was obtained with 1% lidocaine and approximately 5 mL of clear yellow fluid was aspirated. Thoracentesis catheter was then inserted at that site, but additional fluid could not be obtained. The smaller needle was reinserted and repositioned, but again no additional fluids could be located. Procedure was terminated at that point. Given the increasing size of the effusion and presumed loculation with the setting of persistent fever and lung abscess, I suspect that the patient is going to need thoracoscopy and decortication. We will see how he evolves over the weekend prior to obtaining surgical consultation. Job ID: [id number]
[2020-06-30] MEDS: Benzonatate 100 MG CAP PO PRN (08:35)
[2020-06-30] MEDS: Linezolid 600 MG TAB PO SCH ×2 (08:35→21:02)
[2020-06-30] MEDS: Diabetic Tussin 200 MG/10 ML UDCUP PO PRN (08:35)
[2020-06-30] MEDS: Thiamine 100 MG TAB PO SCH (08:35)
[2020-06-30] MEDS: Enoxaparin Sodium 40 MG/0.4 ML SYRINGE SC SCH (08:35)
[2020-06-30] MEDS: Folic Acid 1 MG TAB PO SCH (08:35)
--- NOTE | 2020-06-30 08:50 | RAD ---
CHEST 1 VIEW PORTABLE: Date: 06/30/2020 HISTORY: Abscess, pleural effusion, fever, cough, shortness of breath, hemoptysis. COMPARISON: CT 06/28/2020. FINDINGS: Again noted is evidence for alveolar and interstitial pneumonia in the right lower lobe. Loculated ap pearing left pleural effusion again is noted, as well as patchy parenchymal changes in the left mid l yaya zone and left lower lobe. Cardiac size is stable. IMPRESSION: Overall stable exam. Evidence for bilateral pneumonia and loculated left pleural effusion. Continue s hort-term follow-up. POS: RRE
--- NOTE | 2020-06-30 09:39 | PDOC.HOSPP ---
- Subjective Encounter Date: 06/30/20 Encounter Time: 08:40 Subjective: Pt. is in bed and appears in no acute distress. Oxygen stats have decreased to 93% but states no worsening of SOB. Reports decreased hemoptysis with cough. He states he still has pain on the left when coughing, but it has not changed from previous times. He experienced 2 episodes of watery diarrhea this morning. - Objective Vital Signs & Weight: Vital Signs (12 hours) Temp Pulse Resp BP BP BP Pulse Ox 06/30/20 08:36 93 L 06/30/20 07:39 98.0 F 86 20 160/107 H 93 L 06/30/20 06:24 87 152/104 H 06/30/20 04:00 98.4 F 87 20 152/104 H 93 L 06/30/20 00:00 99.2 F 91 20 150/100 H 93 L Weight Admit Weight 146 lb 12.8 oz Weight 146 lb 12.8 oz I&O: 06/29/20 06/30/20 07/01/20 06:59 06:59 06:59 Intake Total 120 Balance 120 Result Diagrams: 06/30/20 05:15 06/29/20 09:58 Hospitalist ROS - Medication Medications: Active Medications Generic Name Dose Route Start Last Admin Trade Name Freq PRN Reason Stop Dose Admin Acetaminophen 650 mg 06/24/20 03:54 06/26/20 19:57 Acetaminophen 325 Mg Tab PO 650 mg Q4H PRN Administration Headache/Fever/Mild Pain (1-3) Hydrocodone Bitart/Acetaminophen 1 tab 06/24/20 03:54 06/26/20 13:31 Hydrocodone/Acetaminophen 10/325 Mg Tablet PO 1 tab Q4H PRN Administration Moderate Pain (4-6) Hydrocodone Bitart/Acetaminophen 2 tab 06/24/20 03:54 06/24/20 17:09 Hydrocodone/Acetaminophen 10/325 Mg Tablet PO 2 tab Q4H PRN Administration Severe Pain (7-10) Amlodipine Besylate 5 mg 06/28/20 09:00 06/30/20 06:24 Amlodipine 5 Mg Tab PO 5 mg BID ROSALES Administration Benzonatate 100 mg 06/24/20 07:54 06/30/20 08:35 Benzonatate 100 Mg Cap PO 100 mg Q6H PRN Administration Cough Enoxaparin Sodium 40 mg 06/24/20 09:00 06/30/20 08:35 Enoxaparin Sodium 40 Mg/0.4 Ml Syringe SC 40 mg 0900 ROSALES Administration Folic Acid 1 mg 06/24/20 09:00 06/30/20 08:35 Folic Acid 1 Mg Tab PO 1 mg DAILY ROSALES Administration Guaifenesin 200 mg 06/24/20 07:54 06/30/20 08:35 Diabetic Tussin 200 Mg/10 Ml Udcup PO 200 mg Q4H PRN Administration Cough Guaifenesin/Dextromethorphan 15 ml 06/24/20 03:54 06/27/20 08:27 Guaifenesin Dm 100-10/5 Ml Udcup PO 15 ml Q4H PRN Administration Cough Sodium Chloride 1,000 mls @ 70 mls/hr 06/24/20 04:15 06/30/20 05:44 Normal Saline 0.9% IV 1,000 mls .[id number] ROSALES Administration Meropenem 1 gm/ Device 50 mls @ 100 mls/hr 06/25/20 14:00 06/30/20 05:44 IVPB 50 mls Q8HR ORSALES Administration Clindamycin Phosphate/Dextrose 50 mls @ 100 mls/hr 06/25/20 17:00 06/30/20 08:34 900 mg/ Device IVPB 50 mls 0100,0900,1700 ROSALES Administration Ibuprofen 400 mg 06/26/20 22:42 06/28/20 05:41 Ibuprofen 200 Mg Tab PO 400 mg Q6H PRN Administration Fever/Mild Pain Linezolid 600 mg 06/26/20 21:00 06/30/20 08:35 Linezolid 600 Mg Tab PO 600 mg Q12HR ROSALES Administration Senna/Docusate Sodium 2 tab 06/24/20 07:54 06/26/20 00:08 Senokot S 8.6-50 Mg Tab PO 2 tab BID PRN Administration Constipation Sodium Chloride 10 ml 06/24/20 09:00 06/30/20 08:36 Flush - Normal Saline 10 Ml Syringe IVF 10 ml Q12HR ROSALES Administration Thiamine HCl 100 mg 06/24/20 09:00 06/30/20 08:35 Thiamine 100 Mg Tab PO 100 mg DAILY ROSALES Administration - Exam General Appearance: NAD, awake alert Heart: RRR, no murmur, no gallops, no rubs Respiratory: CTAB, no wheezes, no rales, no ronchi, no tachypnea Respiratory - other findings: Decreased breath sounds bilaterally Gastrointestinal: soft, non-tender, non-distended, normal bowel sounds, no palpable masses, no hepatomegaly, no splenomegaly Psychiatric: normal affect, normal behavior, A&O x 3 Hosp A/P (1) Sepsis Code(s): A41.9 - SEPSIS, UNSPECIFIED ORGANISM Status: Acute Qualifiers: Sepsis type: sepsis due to unspecified organism Sepsis acute organ dysfunction status: without acute organ dysfunction Qualified Code(s): A41.9 - Sepsis, unspecified organism (2) Lung abscess Code(s): J85.2 - ABSCESS OF LUNG WITHOUT PNEUMONIA Status: Acute Qualifiers: Pulmonary abscess pneumonia presence: with pneumonia Laterality: left Lung location: lower lobe of lung Qualified Code(s): J85.1 - Abscess of lung with pneumonia (3) Nausea & vomiting Code(s): R11.2 - NAUSEA WITH VOMITING, UNSPECIFIED Status: Acute (4) Alcohol abuse Code(s): F10.10 - ALCOHOL ABUSE, UNCOMPLICATED Status: Chronic - Plan Leukocytosis and fever -Secondary to lung abscess--it does not appear to be drainable scenario.--Both pulmonary and ID following with us. Left lower lobe lung abscess--differentials include: Aspiration: Pt. drinks 12pk/day with jagor shots; episode of vomiting on admission; LLL abscess unusual location Empyema also in the differential we have to check pleural fluid analysis and if pH is less than 7.2 and Gram stain is positive very likely he has empyema. That has to be ruled out if he clinically get worse he needs thoracentesis. Malignancy: Pt. is smoker 1pk/day since 16 yo; fhx negative for lung cancer, patient denies weight loss; he does have a trace hemoptysis intermittently. Endemic Fungi: Pt denies travel history within last 6 months--so low threshold for cocci and histo Mycobacteria: pt denies visiting prisons however pt. considered immunocompromised due to heavy alcohol use -We will get the QuantiFERON test tomorrow. They do not do it today in the lab. -CT abdomen did not show any visceral abnormality. -Antibiotics switched to clindamycin and he is on Zyvox and meropenem as well.[Before this was on vacomycin and meropenem) -Blood cultures were negative -Sputum showed gram-positive rods as well as gram-positive cocci in clusters. -Syphilis nonreactive so does HIV and hepatitis C and B -Discussed with Dr. Garay. --Ordering CBC w/differential to monitor WBC. -quantiFERON to rule out TB. -Ordering sed rate and procalcitonin -Chest CT w and wo contrast ordered due to continued low-grade fevers 1st Persistent parenchymal abscess in the left lower lobe. Increased pleural fluid Worsening pneumonia without clinical digression -Echo report reviewed EF of 55% without any wall motion and valvular a bnormalities. -Diagnostic thoracentesis yesterday. - does not appear much pleural fluid removed. -He still has ongoing elevated leukocytosis. Procalcitonin level around 0.64. His C-reactive protein however quite high at 25.9. His creatinine in the normal range. Hypokalemia -Replace He has no fever and clinically nontoxic appearing. Continue with the current antibiotic management. I discussed briefly with the Dr. Garay yesterday. Accelerated hypertension -Norvasc is not helping much we will add lisinopril along with that for optimum control of his blood pressure. Probably due to the acute stress of pneumonia and lung abscess versus underlying uncontrolled hypertension 11/2 Worsening pneumonia despite being on 3 antibiotics. O2 at 93% room air. -CXR new findings show bilateral pneumonia and loculated left pleural effusion -CRP is elevated -Waiting on quantiFERON test results -Rheumatoid, DIANA ordered to rule out autoimmune process. -Pulmonary is evaluating him for thoracotomy/ decortication. Hypertension -BP remains elevated--Lisinopril increased to 20 mg for optimum control. Hypokalemia: -replaced Diarrhea -Check C. difficile if negative then give him loperamide as needed Student's note is edited and discussed the care plan in detail with her.
[2020-06-30] MEDS ORDERED: Lisinopril 10 MG TAB PO SCH ×2 (09:45→10:30)
[2020-06-30 11:02] LABS: Thyroid Stimulating Hormone 1.5435 uIU/mL (0.35-4.94)
--- NOTE | 2020-06-30 19:59 | PRG ---
DATE OF SERVICE: 06/30/2020 SUBJECTIVE: Nikhil Mancilla had a CT over the weekend as well as attempts to drain pleural fluid were unsuccessful. He clinically appears to have loculated effusion on the same side as his lung abscess. He has no new complaints. He is still on room air. Denies shortness of breath and denies pain unless he coughs or sneezes. He has decreased breath sounds at his left base. IMPRESSION: Pneumonia with loculated parapneumonic effusion is tentatively to be evaluated by cardiothoracic surgery. His thrombocytosis is most likely associated with his effusion and is reactive. Hopefully, we can simplify antibiotics after surgery. Job ID: [id number]
--- NOTE | 2020-06-30 20:56 | CON ---
DATE OF CONSULTATION: 06/30/2020 REASON FOR CONSULTATION: Evaluate the patient for left empyema. HISTORY OF PRESENT ILLNESS: Mr. Mancilla was admitted on 06/24. He came through the emergency department with left upper quadrant pain. He has had fever, chills, cough that was productive. He had a chest x-ray and CT of the chest performed when he was admitted, which showed no evidence of pulmonary embolism. He had a small amount of fluid and intraparenchymal fluid in the left thorax. The intraparenchymal area had a small bubble of air. This was consistent with a lung abscess. He has been treated with clindamycin and meropenem. He has had increasing left-sided effusion on chest x-ray. Not had any fever since 06/27 when his temperature was 101.3. His white blood cell count has decreased from a high of 20.2 down to 14.8. He had attempted left thoracentesis yesterday, which yielded only a small amount of clear yellow fluid. He has had a repeat chest CT, which shows multiloculated extraparenchymal fluid on the left, along with the intraparenchymal abscess. I have been asked to see him to discuss left thoracoscopy. PAST MEDICAL HISTORY: 1. Cannabis abuse. 2. Alcohol abuse. 3. Left empyema. PAST SURGICAL HISTORY: None. MEDICATIONS AT HOME: None. ALLERGIES: NONE. SOCIAL HISTORY: He works in construction. REVIEW OF SYSTEMS: A 10-point review of systems is performed and is negative except as above. PHYSICAL EXAMINATION: GENERAL: This is a well-developed, well-nourished male, resting comfortably in bed. VITAL SIGNS: Height 5 feet 8 inches, weight is 146 pounds, BSA is 1.79. Temperature is 98.9, pulse is 86 and regular, blood pressure is 154/98, and oxygen saturation is 94% on room air. HEENT: Sclerae nonicteric. Pupils equal and round bilaterally. NECK: Supple. He has no adenopathy. CHEST: Has diminished breath sounds over the left lower chest. HEART: Rhythm is regular without murmur. ABDOMEN: Soft and nontender. EXTREMITIES: No edema. ASSESSMENT AND PLAN: This pleasant 50-year-old gentleman with multiloculated left pleural effusion with lung abscess. This is consistent with empyema. I have discussed thoracoscopy for decortication, drainage. He is agreeable to make plans for tomorrow. Job ID: [id number]
[2020-07-01] MEDS: Clindamycin/D5W 900 MG in Premix Bag 1 BAG IVPB SCH ×3 (00:46→21:49)
[2020-07-01] MEDS: Sodium Chloride 0.9% 1,000 ML IV SCH ×3 (00:47→21:50)
[2020-07-01] MEDS: MEROPENEM 1 GM/50 ML 1 GM in Premix Bag 1 BAG IVPB SCH ×3 (05:12→21:49)
[2020-07-01 05:50] LABS: Hemoglobin 11.8 g/dL (14.0-18.0); Mean Corpuscular Hemoglobin 34.9 pg (27.0-31.0); Mean Platelet Volume 6.6 fL (7.4-10.4); Platelet Count 793 thou/uL (130-400); RBC Distribution Width 12.9 % (11.5-14.5); Red Blood Cell (RBC) Count 3.37 mill/uL (4.70-6.10); White Blood Cell (WBC) Count 12.6 thou/uL (4.8-10.8)
[2020-07-01 05:51] LABS: Eosinophils 1 % (0-10); Hypochromia SLIGHT = 6-15 cells (100X) (0-5/hpf); Lymphocytes 17 % (21-51); MDiff Complete? YES; Macrocytosis SLIGHT = 6-15 cells (100X) (0-5/hpf); Monocytes 10 % (0-10); Neutrophil 72 % (42-75); Platelet Morphology Comment Appears Increased
[2020-07-01 05:56] LABS: Anion Gap 13 mmol/L (10-20); BUN (Urea Nitrogen) 7 mg/dL (8.9-20.6); Calc. Creatinine Clearance 99 mL/min (70-130); Calcium 8.7 mg/dL (7.8-10.44); Carbon Dioxide 26 mmol/L (22-29); Chloride 105 mmol/L (98-107); Estimated GFR-MDRD Greater than 90; Glucose 90 mg/dL (70-105); Potassium 3.9 mmol/L (3.5-5.1); Sodium 140 mmol/L (136-145)
[2020-07-01] MEDS: Linezolid 600 MG TAB PO SCH ×2 (08:09→21:50)
[2020-07-01] MEDS: Folic Acid 1 MG TAB PO SCH (08:09)
[2020-07-01] MEDS: Amlodipine 5 MG TAB PO SCH ×2 (08:09→21:51)
[2020-07-01] MEDS: Lisinopril 10 MG TAB PO SCH ×2 (08:09→21:50)
[2020-07-01] MEDS: Thiamine 100 MG TAB PO SCH (08:10)
--- NOTE | 2020-07-01 09:24 | PDOC.HOSPP ---
- Subjective Encounter Date: 07/01/20 Encounter Time: 09:00 Subjective: Pt. is in bed and appears in no acute distress. States no new complaints. SOB is about the same and only worsens when coughing. He also experiences some pain on the left side when coughing. Oxygen sats have improved today. C. diff results came back negative as a possible cause for his diarrhea. - Objective Vital Signs & Weight: Vital Signs (12 hours) Temp Pulse Resp BP BP BP Pulse Ox 07/01/20 08:09 85 132/88 07/01/20 07:28 98.6 F 85 18 132/88 95 06/30/20 23:53 98.2 F 89 20 139/93 H 97 Weight Admit Weight 146 lb 12.8 oz Weight 146 lb 12.8 oz I&O: 06/30/20 07/01/20 07/02/20 06:59 06:59 06:59 Intake Total 120 3150 Balance 120 3150 Result Diagrams: 07/01/20 05:07 07/01/20 05:07 Hospitalist ROS - Medication Medications: Active Medications Generic Name Dose Route Start Last Admin Trade Name Freq PRN Reason Stop Dose Admin Acetaminophen 650 mg 06/24/20 03:54 06/26/20 19:57 Acetaminophen 325 Mg Tab PO 650 mg Q4H PRN Administration Headache/Fever/Mild Pain (1-3) Hydrocodone Bitart/Acetaminophen 1 tab 06/24/20 03:54 06/26/20 13:31 Hydrocodone/Acetaminophen 10/325 Mg Tablet PO 1 tab Q4H PRN Administration Moderate Pain (4-6) Hydrocodone Bitart/Acetaminophen 2 tab 06/24/20 03:54 06/24/20 17:09 Hydrocodone/Acetaminophen 10/325 Mg Tablet PO 2 tab Q4H PRN Administration Severe Pain (7-10) Amlodipine Besylate 5 mg 06/28/20 09:00 07/01/20 08:09 Amlodipine 5 Mg Tab PO 5 mg BID ROSALES Administration Benzonatate 100 mg 06/24/20 07:54 06/30/20 08:35 Benzonatate 100 Mg Cap PO 100 mg Q6H PRN Administration Cough Enoxaparin Sodium 40 mg 06/24/20 09:00 06/30/20 08:35 Enoxaparin Sodium 40 Mg/0.4 Ml Syringe SC 40 mg 0900 ROSALES Administration Folic Acid 1 mg 06/24/20 09:00 07/01/20 08:09 Folic Acid 1 Mg Tab PO Not Given DAILY ROSALES Guaifenesin 200 mg 06/24/20 07:54 06/30/20 08:35 Diabetic Tussin 200 Mg/10 Ml Udcup PO 200 mg Q4H PRN Administration Cough Guaifenesin/Dextromethorphan 15 ml 06/24/20 03:54 06/27/20 08:27 Guaifenesin Dm 100-10/5 Ml Udcup PO 15 ml Q4H PRN Administration Cough Meropenem 1 gm/ Device 50 mls @ 100 mls/hr 06/25/20 14:00 07/01/20 05:12 IVPB 50 mls Q8HR ROSALES Administration Clindamycin Phosphate/Dextrose 50 mls @ 100 mls/hr 06/25/20 17:00 07/01/20 08:11 900 mg/ Device IVPB 50 mls 0100,0900,1700 ROSALES Administration Sodium Chloride 1,000 mls @ 100 mls/hr 06/30/20 15:04 07/01/20 00:47 Normal Saline 0.9% IV 1,000 mls .Q10H ROSALES Administration Ibuprofen 400 mg 06/26/20 22:42 06/28/20 05:41 Ibuprofen 200 Mg Tab PO 400 mg Q6H PRN Administration Fever/Mild Pain Linezolid 600 mg 06/26/20 21:00 07/01/20 08:09 Linezolid 600 Mg Tab PO 600 mg Q12HR ROSALES Administration Lisinopril 20 mg 06/30/20 21:00 07/01/20 08:09 Lisinopril 10 Mg Tab PO 20 mg BID ROSALES Administration Senna/Docusate Sodium 2 tab 06/24/20 07:54 06/26/20 00:08 Senokot S 8.6-50 Mg Tab PO 2 tab BID PRN Administration Constipation Sodium Chloride 10 ml 06/24/20 09:00 07/01/20 08:10 Flush - Normal Saline 10 Ml Syringe IVF Not Given Q12HR ROSALES Thiamine HCl 100 mg 06/24/20 09:00 07/01/20 08:10 Thiamine 100 Mg Tab PO Not Given DAILY ROSALES - Exam General Appearance: NAD, awake alert Eye: PERRL, anicteric sclera Respiratory: no wheezes, no rales, no ronchi, no tachypnea Respiratory - other findings: decreased breath sounds LLL Gastrointestinal: soft, non-tender, non-distended, normal bowel sounds, no palpable masses, no hepatomegaly, no splenomegaly Psychiatric: normal affect, normal behavior, A&O x 3 Hosp A/P (1) Sepsis Code(s): A41.9 - SEPSIS, UNSPECIFIED ORGANISM Status: Acute Qualifiers: Sepsis type: sepsis due to unspecified organism Sepsis acute organ dysfunction status: without acute organ dysfunction Qualified Code(s): A41.9 - Sepsis, unspecified organism (2) Lung abscess Code(s): J85.2 - ABSCESS OF LUNG WITHOUT PNEUMONIA Status: Acute Qualifiers: Pulmonary abscess pneumonia presence: with pneumonia Laterality: left Lung location: lower lobe of lung Qualified Code(s): J85.1 - Abscess of lung with pneumonia (3) Nausea & vomiting Code(s): R11.2 - NAUSEA WITH VOMITING, UNSPECIFIED Status: Acute (4) Alcohol abuse Code(s): F10.10 - ALCOHOL ABUSE, UNCOMPLICATED Status: Chronic - Plan Leukocytosis and fever -Secondary to lung abscess--it does not appear to be drainable scenario.--Both pulmonary and ID following with us. Left lower lobe lung abscess--differentials include: Aspiration: Pt. drinks 12pk/day with jagor shots; episode of vomiting on admission; LLL abscess unusual location Empyema also in the differential we have to check pleural fluid analysis and if pH is less than 7.2 and Gram stain is positive very likely he has empyema. *That has to be ruled out if he clinically get worse he needs thoracentesis. Malignancy: Pt. is smoker 1pk/day since 16 yo; fhx negative for lung cancer, patient denies weight loss; he does have a trace hemoptysis intermittently. Endemic Fungi: Pt denies travel history within last 6 months--so low threshold for cocci and histo Mycobacteria: pt denies visiting prisons however pt. considered immunocompromised due to heavy alcohol use -We will get the QuantiFERON test tomorrow. They do not do it today in the lab. -CT abdomen did not show any visceral abnormality. -Antibiotics switched to clindamycin and he is on Zyvox and meropenem as well.[Before this was on vacomycin and meropenem) -Blood cultures were negative -Sputum showed gram-positive rods as well as gram-positive cocci in clusters. -Syphilis nonreactive so does HIV and hepatitis C and B -Discussed with Dr. Garay. --Ordering CBC w/differential to monitor WBC. -quantiFERON to rule out TB. -Ordering sed rate and procalcitonin -Chest CT w and wo contrast ordered due to continued low-grade fevers 06/29 Persistent parenchymal abscess in the left lower lobe. Increased pleural fluid Worsening pneumonia without clinical digression -Echo report reviewed EF of 55% without any wall motion and valvular abnormalities. -Diagnostic thoracentesis yesterday. - does not appear much pleural fluid removed. -He still has ongoing elevated leukocytosis. Procalcitonin level around 0.64. His C-reactive protein however quite high at 25.9. His creatinine in the normal range. Hypokalemia -Replace He has no fever and clinically nontoxic appearing. Continue with the current antibiotic management. I discussed briefly with the Dr. Garay yesterday. Accelerated hypertension -Norvas is not helping much we will add lisinopril along with that for optimum control of his blood pressure. Probably due to the acute stress of pneumonia and lung abscess versus underlying uncontrolled hypertension 06/30 Worsening pneumonia despite being on 3 antibiotics. O2 at 93% room air. -CXR new findings show bilateral pneumonia and loculated left pleural effusion -CRP is elevated -Waiting on quantiFERON test results -Rheumatoid, DIANA ordered to rule out autoimmune process. -Pulmonary is evaluating him for thoracotomy/ decortication. Hypertension -BP remains elevated--Lisinopril increased to 20 mg for optimum control. Hypokalemia: -replaced Diarrhea -Check C. difficile if negative then give him loperamide as needed Student's note is edited and discussed the care plan in detail with her. 07/01 Multiloculated pleural effusion Empyema Pneumonia seems to be stabilizing---WBC is trending down, he has been afebrile and O2 >95 -Cardiovascular note reviewed--thoracoscopy for decortication and drainage of LLL abscess--plan to be done today. -quantiFERON, rhematoid, and DIANA results pending -clindamycin and Zyvox and meropenem Diarrhea--C. difficile test came back negative - on Loperamide as needed Patient seen and examined individually. Plan for decortication possibly today by vascular surgery/Dr. Melendez. Discussed the care plan today with the student and agree with the plan for today.
[2020-07-01] MEDS ORDERED: Fentanyl 100 MCG/2 ML VIAL ONE ×5 (11:04→17:55)
[2020-07-01] MEDS ORDERED: Bupivacaine/Epinephrine 0.25% 30 ML VIAL ONE (11:08)
[2020-07-01] MEDS ORDERED: Midazolam HCl 2 mg/2 ml Vial ONE (12:18)
[2020-07-01] MEDS ORDERED: PROPOFOL 200 MG/20 ML VIAL ONE (12:41)
[2020-07-01] MEDS ORDERED: Lidocaine 1% PF 5 ML VIAL ONE (12:41)
[2020-07-01] MEDS ORDERED: Rocuronium Bromide 10 MG/ML (10ML VIAL) ONE (12:41)
[2020-07-01] MEDS ORDERED: Ondansetron PF 4 MG/2 ML Vial ONE (12:41)
[2020-07-01] MEDS ORDERED: PHENYLEPHRINE-NS 100 MCG/ML 10 ML SYRINGE ONE (12:41)
[2020-07-01] MEDS ORDERED: Glycopyrrolate 0.2 MG/ML 5 ML SYRINGE ONE (12:41)
[2020-07-01] MEDS ORDERED: traMADol HCl 50 MG TAB PO PRN ×2 (14:17)
--- NOTE | 2020-07-01 15:12 | RAD ---
Chest AP view INDICATION: Post left-sided thoracoscopy COMPARISON: Prior exam dated June 30, 2020 FINDINGS: Lungs: There is improved aeration of left lung. There is residual hazy left perihilar airspace opaci ty. There is residual left basilar airspace opacity. Mild right perihilar opacity is slightly more pronounced. Cardiac silhouette: There is stable cardiomegaly Pulmonary vasculature: There is slight increase in the pulmonary vascular congestion Pleural spaces: There has been improvement in the loculated left-sided pleural effusion. Small left pleural effusion remains. No pneumothorax is demonstrated. There are 2 separate left-sided thoracostomy tubes projecting into the upper aspect of the left hemithorax. Upper abdomen: No abnormality seen. Osseous structures: No acute osseous abnormality. Additional findings: None. IMPRESSION: Improvement in the loculated left-sided pleural effusion. Small left pleural effusion remains. 2 new left-sided thoracotomy tubes. Persistent perihilar airspace disease possibly reflecting a residual pneumonia or edema. Moderate cardiomegaly is stable. Left basilar airspace disease persists..
[2020-07-01] MEDS ORDERED: Ondansetron HCl/PF 4 MG/2 ML Vial IVP PRN (15:28)
[2020-07-01] MEDS ORDERED: Promethazine HCl 25 MG/ML VIAL IM PRN (15:28)
[2020-07-01] MEDS ORDERED: Promethazine HCl 25 MG/ML VIAL SLOW IVP PRN (15:28)
--- NOTE | 2020-07-01 18:18 | OP ---
DATE OF PROCEDURE: 07/01/2020 PREOPERATIVE DIAGNOSIS: Left empyema. POSTOPERATIVE DIAGNOSIS: Left empyema. PROCEDURE PERFORMED: Left thoracoscopy with pulmonary decortication. ANESTHESIA: General endotracheal. ESTIMATED BLOOD LOSS: Less than 100. DRAINS: 24-Welsh Puma drains x2. SPECIMENS: Cultures. DESCRIPTION OF PROCEDURE: After consent was obtained, the patient was brought to the operating room and placed in supine position on the operating room table. Appropriate central line and monitors were placed and general endotracheal anesthesia was induced. The patient was placed in a right lateral decubitus position. Joints were appropriately padded. SCD was used. Flexible fiberoptic bronchoscopy was used to position the endotracheal tube. Three port incisions were made on the left chest wall. The thoracoscope was inserted. Blunt dissection was used to take down the adhesions and remove all of the gelatinous debris. The chest was evacuated of fluid. This was cultured. The chest was copiously irrigated. Two 24-Welsh Puma drains were placed through the anterior port site. Lung was re-expanded under direct vision and filled the chest cavity nicely. The wounds were all infiltrated with 0.5% Marcaine with epinephrine. Wounds were then closed in layers and Dermabond applied to the skin. The patient tolerated the procedure well, was awakened, extubated, and transferred to the recovery room in stable condition. Job ID: [id number]
[2020-07-01] MEDS ORDERED: Morphine 4 MG/ML VIAL ONE (18:28)
[2020-07-02 04:11] LABS: Band 5 % (5-11); Hemoglobin 11.6 g/dL (14.0-18.0); Lymphocytes 16 % (21-51); MDiff Complete? YES; Macrocytosis SLIGHT = 6-15 cells (100X) (0-5/hpf); Mean Corpuscular HGB CONC 33.3 g/dL (32.0-36.0); Mean Corpuscular Hemoglobin 35.1 pg (27.0-31.0); Mean Platelet Volume 6.6 fL (7.4-10.4); Monocytes 4 % (0-10); Neutrophil 75 % (42-75); Platelet Count 871 thou/uL (130-400); Platelet Morphology Comment Appears Increased; RBC Distribution Width 13.3 % (11.5-14.5); Red Blood Cell (RBC) Count 3.31 mill/uL (4.70-6.10)
[2020-07-02 04:19] LABS: Anion Gap 12 mmol/L (10-20); BUN (Urea Nitrogen) 7 mg/dL (8.9-20.6); Calc. Creatinine Clearance 95 mL/min (70-130); Calcium 8.9 mg/dL (7.8-10.44); Carbon Dioxide 27 mmol/L (22-29); Chloride 102 mmol/L (98-107); Estimated GFR-MDRD Greater than 90; Glucose 95 mg/dL (70-105); Potassium 4.3 mmol/L (3.5-5.1); Sodium 137 mmol/L (136-145)
[2020-07-02] MEDS: Clindamycin/D5W 900 MG in Premix Bag 1 BAG IVPB SCH ×3 (06:17→21:51)
[2020-07-02] MEDS: Sodium Chloride 0.9% 1,000 ML IV SCH ×2 (06:17→17:05)
[2020-07-02] MEDS: MEROPENEM 1 GM/50 ML 1 GM in Premix Bag 1 BAG IVPB SCH ×3 (06:43→21:51)
--- NOTE | 2020-07-02 07:48 | RAD ---
Chest AP view INDICATION: Status post left-sided thoracoscopy COMPARISON: Prior exam dated July 01, 2020 FINDINGS: Lungs: Airspace disease of the left lung is slightly more prominent suspicious for worsening airspac e edema or pneumonia. Left basilar airspace disease persists. Cardiac silhouette: There is stable moderate cardiomegaly Pulmonary vasculature: Pulmonary vascular congestion persists Pleural spaces: There is been interval worsening [id number] left-sided pleural effusion. No p neumothorax is evident. Small right pleural effusion remains. Upper abdomen: No abnormality seen. Osseous structures: No acute osseous abnormality. Additional findings: Left-sided thoracostomy tubes are unchanged in position. IMPRESSION: Worsening small the moderate left-sided pleural effusion with stable left-sided thoracostomy tubes. N o pneumothorax. Stable cardiomegaly of pulmonary vascular congestion suspicious for volume overload or CHF. Stable le ft basilar airspace disease.
[2020-07-02] MEDS: Amlodipine 5 MG TAB PO SCH ×2 (09:08→21:50)
[2020-07-02] MEDS: Lisinopril 10 MG TAB PO SCH ×2 (09:08→21:50)
[2020-07-02] MEDS: Thiamine 100 MG TAB PO SCH (09:09)
[2020-07-02] MEDS: Linezolid 600 MG TAB PO SCH ×2 (09:09→21:51)
[2020-07-02] MEDS: Folic Acid 1 MG TAB PO SCH (09:09)
[2020-07-02] MEDS: Metoprolol Tartrate 25 MG TAB PO SCH ×2 (09:09→21:51)
[2020-07-02] MEDS: Enoxaparin Sodium 40 MG/0.4 ML SYRINGE SC SCH (09:22)
--- NOTE | 2020-07-02 10:14 | PDOC.HOSPP ---
- Subjective Encounter Date: 07/02/20 Encounter Time: 09:00 Subjective: Pt. post-op day 1 thoracoscopy with decortication. He is in bed. Appears to be in mild discomfort. States SOB is happening at rest now. He is also feeling sore from the procedure and is unable to move much. He has not had any bowel movements since the procedure. He's had some low-grade post-op fevers that are expected. Chest tube drainage is bloody and at around 110 mL during this time. - Objective Vital Signs & Weight: Vital Signs (12 hours) Temp Pulse BP 07/02/20 09:08 101 H 147/102 H 07/02/20 07:00 99.2 F Weight Admit Weight 146 lb 12.8 oz Weight 146 lb 12.8 oz Most Recent Monitor Data Heart Rate from ECG 100 NIBP 147/102 NIBP BP-Mean 117 Respiration from ECG 41 SpO2 97 I&O: 07/01/20 07/02/20 07/03/20 06:59 06:59 06:59 Intake Total 3150 1880 Output Total 1430 Balance 3150 450 Result Diagrams: 07/02/20 03:15 07/02/20 03:15 Hospitalist ROS - Medication Medications: Active Medications Generic Name Dose Route Start Last Admin Trade Name Freq PRN Reason Stop Dose Admin Acetaminophen 650 mg 06/24/20 03:54 06/26/20 19:57 Acetaminophen 325 Mg Tab PO 650 mg Q4H PRN Administration Headache/Fever/Mild Pain (1-3) Hydrocodone Bitart/Acetaminophen 1 tab 06/24/20 03:54 06/26/20 13:31 Hydrocodone/Acetaminophen 10/325 Mg Tablet PO 1 tab Q4H PRN Administration Moderate Pain (4-6) Hydrocodone Bitart/Acetaminophen 2 tab 06/24/20 03:54 06/24/20 17:09 Hydrocodone/Acetaminophen 10/325 Mg Tablet PO 2 tab Q4H PRN Administration Severe Pain (7-10) Amlodipine Besylate 5 mg 06/28/20 09:00 07/02/20 09:08 Amlodipine 5 Mg Tab PO 5 mg BID ROSALES Administration Benzonatate 100 mg 06/24/20 07:54 06/30/20 08:35 Benzonatate 100 Mg Cap PO 100 mg Q6H PRN Administration Cough Enoxaparin Sodium 40 mg 06/24/20 09:00 07/02/20 09:22 Enoxaparin Sodium 40 Mg/0.4 Ml Syringe SC 40 mg 0900 ROSALES Administration Folic Acid 1 mg 06/24/20 09:00 07/02/20 09:09 Folic Acid 1 Mg Tab PO 1 mg DAILY ROSALES Administration Guaifenesin 200 mg 06/24/20 07:54 06/30/20 08:35 Diabetic Tussin 200 Mg/10 Ml Udcup PO 200 mg Q4H PRN Administration Cough Guaifenesin/Dextromethorphan 15 ml 06/24/20 03:54 06/27/20 08:27 Guaifenesin Dm 100-10/5 Ml Udcup PO 15 ml Q4H PRN Administration Cough Meropenem 1 gm/ Device 50 mls @ 100 mls/hr 06/25/20 14:00 07/02/20 06:43 IVPB 50 mls Q8HR ROSALES Administration Sodium Chloride 1,000 mls @ 100 mls/hr 06/30/20 15:04 07/02/20 06:17 Normal Saline 0.9% IV Not Given .Q10H ROSALES Clindamycin Phosphate/Dextrose 50 mls @ 100 mls/hr 07/02/20 06:00 07/02/20 06:17 900 mg/ Device IVPB 50 mls Q8HR ROSALES Administration Ibuprofen 400 mg 06/26/20 22:42 06/28/20 05:41 Ibuprofen 200 Mg Tab PO 400 mg Q6H PRN Administration Fever/Mild Pain Linezolid 600 mg 06/26/20 21:00 07/02/20 09:09 Linezolid 600 Mg Tab PO 600 mg Q12HR ROSALES Administration Lisinopril 20 mg 06/30/20 21:00 07/02/20 09:08 Lisinopril 10 Mg Tab PO 20 mg BID ROSALES Administration Metoprolol Tartrate 25 mg 07/02/20 09:00 07/02/20 09:09 Metoprolol Tartrate 25 Mg Tab PO 25 mg BID ROSALES Administration Senna/Docusate Sodium 2 tab 06/24/20 07:54 06/26/20 00:08 Senokot S 8.6-50 Mg Tab PO 2 tab BID PRN Administration Constipation Sodium Chloride 10 ml 06/24/20 09:00 07/02/20 09:11 Flush - Normal Saline 10 Ml Syringe IVF 10 ml Q12HR ROSALES Administration Thiamine HCl 100 mg 06/24/20 09:00 07/02/20 09:09 Thiamine 100 Mg Tab PO 100 mg DAILY ROSALES Administration - Exam General Appearance: NAD, awake alert, ill appearing ENT: no oropharyngeal lesions, moist mucosa Heart: RRR, no murmur, no gallops, no rubs, normal peripheral pulses Respiratory: CTAB, no wheezes, no rales, no ronchi, no tachypnea Gastrointestinal: soft, non-tender, non-distended, normal bowel sounds, no palpable masses, no hepatomegaly, no splenomegaly Extremities: no cyanosis, no clubbing, no edema Psychiatric: normal affect, normal behavior, A&O x 3 Hosp A/P (1) Sepsis Code(s): A41.9 - SEPSIS, UNSPECIFIED ORGANISM Status: Acute Qualifiers: Sepsis type: sepsis due to unspecified organism Sepsis acute organ dysfunction status: without acute organ dysfunction Qualified Code(s): A41.9 - Sepsis, unspecified organism (2) Lung abscess Code(s): J85.2 - ABSCESS OF LUNG WITHOUT PNEUMONIA Status: Acute Qualifiers: Pulmonary abscess pneumonia presence: with pneumonia Laterality: left Lung location: lower lobe of lung Qualified Code(s): J85.1 - Abscess of lung with pneumonia (3) Nausea & vomiting Code(s): R11.2 - NAUSEA WITH VOMITING, UNSPECIFIED Status: Acute (4) Alcohol abuse Code(s): F10.10 - ALCOHOL ABUSE, UNCOMPLICATED Status: Chronic - Plan Leukocytosis and fever -Secondary to lung abscess--it does not appear to be drainable scenario.--Both pulmonary and ID following with us. Left lower lobe lung abscess--differentials include: Aspiration: Pt. drinks 12pk/day with jagor shots; episode of vomiting on admission; LLL abscess unusual location Empyema also in the differential we have to check pleural fluid analysis and if pH is less than 7.2 and Gram stain is positive very likely he has empyema. *That has to be ruled out if he clinically get worse he needs thoracentesis. Malignancy: Pt. is smoker 1pk/day since 16 yo; fhx negative for lung cancer, patient denies weight loss; he does have a trace hemoptysis intermittently. Endemic Fungi: Pt denies travel history within last 6 months--so low threshold for cocci and histo Mycobacteria: pt denies visiting prisons however pt. considered immunocompromised due to heavy alcohol use -We will get the QuantiFERON test tomorrow. They do not do it today in the lab. -CT abdomen did not show any visceral abnormality. -Antibiotics switched to clindamycin and he is on Zyvox and meropenem as well.[Before this was on vacomycin and meropenem) -Blood cultures were negative -Sputum showed gram-positive rods as well as gram-positive cocci in clusters. -Syphilis nonreactive so does HIV and hepatitis C and B -Discussed with Dr. Garay. --Ordering CBC w/differential to monitor WBC. -quantiFERON to rule out TB. -Ordering sed rate and procalcitonin -Chest CT w and wo contrast ordered due to continued low-grade fevers 06/29 Persistent parenchymal abscess in the left lower lobe. Increased pleural fluid Worsening pneumonia without clinical digression -Echo report reviewed EF of 55% without any wall motion and valvular abnormalities. -Diagnostic thoracentesis yesterday. - does not appear much pleural fluid removed. -He still has ongoing elevated leukocytosis. Procalcitonin level around 0.64. His C-reactive protein however quite high at 25.9. His creatinine in the normal range. Hypokalemia -Replace He has no fever and clinically nontoxic appearing. Continue with the current antibiotic management. I discussed briefly with the Dr. Garay yesterday. Accelerated hypertension -Norvasc is not helping much we will add lisinopril along with that for optimum control of his blood pressure. Probably due to the acute stress of pneumonia and lung abscess versus underlying uncontrolled hypertension 06/30 Worsening pneumonia despite being on 3 antibiotics. O2 at 93% room air. -CXR new findings show bilateral pneumonia and loculated left pleural effusion -CRP is elevated -Waiting on quantiFERON test results -Rheumatoid, DIANA ordered to rule out autoimmune process. -Pulmonary is evaluating him for thoracotomy/ decortication. Hypertension -BP remains elevated--Lisinopril increased to 20 mg for optimum control. Hypokalemia: -replaced Diarrhea -Check C. difficile if negative then give him loperamide as needed Student's note is edited and discussed the care plan in detail with her. 07/01 Multiloculated pleural effusion Empyema Pneumonia seems to be stabilizing---WBC is trending down, he has been afebrile and O2 >95 -Cardiovascular note reviewed--thoracoscopy for decortication and drainage of LLL abscess--plan to be done today. -quantiFERON, rhematoid, and DIANA results pending -clindamycin and Zyvox and meropenem Diarrhea--C. difficile test came back negative - on Loperamide as needed Patient seen and examined individually. Plan for decortication possibly today by vascular surgery/Dr. Melendez. Discussed the care plan today with the student and agree with the plan for today. 07/02 Multiloculated pleural effusion Empyema -Pt. post-op day 1 thoracoscopy with decortication of LLL abscess --Pt. has been having some low-grade fevers and elevated WBC count--this is expected due to thoracoscopy with decortication procedure --Pt. is sore and unable to move; will start pain medications as well as stool softeners -CXR showed worsening left-sided pleural effusion; stable cardiomegaly of pulmonary vascular congestion suspicious for volume overload --Will be monitoring fluids and dietary intake as well as urine output -Continue clindamycin, Zyvox and meropenem -quantiFERON, rhematoid, and DIANA results still pending. Patient seen and examined today. He has a chest tube draining about 100 mL serous fluid. Patient does have some soreness. Otherwise he is stable. Care discussed with the student and reviewed her notes and edited according to today's plan.
[2020-07-02 12:02] LABS: ANA Symphony (Qualitative) Negative (Negative); ANA Symphony (Quantitative) 0.2 Ratio (< 0.7 Negative); CCP IgG Antibody 0.6 EliAU/mL (<7 Negative); EliA RAS New Method **** NEW METHOD ****; Rheumatoid Factor IgA Antibody 3.3 IU/mL (<14 Negative); Rheumatoid Factor IgM Antibody Less than 0.5 IU/mL (<3.5 Negative); dsDNA IgG Antibody Less than 0.5 IU/mL (<10 Negative)
[2020-07-02] MEDS: HYDROcodone/Acetaminophen 10/325 mg Tablet PO PRN (14:02)
[2020-07-02] MEDS: Benzonatate 100 MG CAP PO PRN ×2 (14:13→21:50)
[2020-07-02] MEDS: Guaifenesin DM 100-10/5 ML UDCUP PO PRN ×2 (14:30→21:48)
--- NOTE | 2020-07-02 15:46 | PRG ---
DATE OF SERVICE: 07/02/2020 SUBJECTIVE: Mr. Mancilla is going to a surgery. He is doing reasonably well. He reports pain is 4/10. He says he has been able to sleep however. OBJECTIVE: VITAL SIGNS: He is afebrile, blood pressure 146/100, heart rate is 103, and respiratory rate is in the 20s. LUNGS: Decreased breath sounds on the left. Right lung is clear. HEART: Regular rhythm. ABDOMEN: Soft. LABORATORY DATA: White count 22, hemoglobin 11.6, and platelets 871. Electrolytes are unremarkable. Creatinine is 0.8. IMPRESSION: 1. Loculated parapneumonic effusion with the lung abscess, it is most likely aspiration mediated. Pleural fluid culture showed no organisms, so this is likely be a sterile effusion. 2. Status post thoracoscopy with decortication. 3. History of heavy alcohol intake prior to admission with no withdrawal this admission. He is out of the risk in my opinion for that. 4. Lung abscess, currently being treated with multiple antibiotics. When he has had his surgery, his antibiotics probably could be simplified, I did discuss with Dr. Garay. He is stable at this time. Job ID: [id number]
[2020-07-02 19:08] LABS: QuantiFERON-TB Gold Plus Negative (Negative)
[2020-07-02] MEDS: Simethicone Chewable 80 MG TAB PO PRN (21:48)
[2020-07-03 04:20] LABS: Anion Gap 12 mmol/L (10-20); BUN (Urea Nitrogen) 6 mg/dL (8.9-20.6); Calc. Creatinine Clearance 114 mL/min (70-130); Calcium 8.5 mg/dL (7.8-10.44); Carbon Dioxide 25 mmol/L (22-29); Chloride 101 mmol/L (98-107); Estimated GFR-MDRD Greater than 90; Glucose 106 mg/dL (70-105); Potassium 4.1 mmol/L (3.5-5.1); Sodium 134 mmol/L (136-145)
[2020-07-03] MEDS: Sodium Chloride 0.9% 1,000 ML IV SCH (05:00)
[2020-07-03] MEDS: Clindamycin/D5W 900 MG in Premix Bag 1 BAG IVPB SCH (05:42)
[2020-07-03] MEDS: MEROPENEM 1 GM/50 ML 1 GM in Premix Bag 1 BAG IVPB SCH (05:42)
[2020-07-03] MEDS: Guaifenesin DM 100-10/5 ML UDCUP PO PRN ×3 (08:48→21:04)
[2020-07-03] MEDS: Thiamine 100 MG TAB PO SCH (08:49)
[2020-07-03] MEDS: Linezolid 600 MG TAB PO SCH ×2 (08:49→21:02)
[2020-07-03] MEDS: Metoprolol Tartrate 25 MG TAB PO SCH ×2 (08:50→21:02)
[2020-07-03] MEDS: Lisinopril 10 MG TAB PO SCH ×2 (08:50→21:02)
[2020-07-03] MEDS: Folic Acid 1 MG TAB PO SCH (08:50)
[2020-07-03] MEDS: HYDROcodone/Acetaminophen 10/325 mg Tablet PO PRN (08:50)
[2020-07-03] MEDS: Amlodipine 5 MG TAB PO SCH ×2 (08:51→21:01)
[2020-07-03] MEDS: Enoxaparin Sodium 40 MG/0.4 ML SYRINGE SC SCH (08:51)
--- NOTE | 2020-07-03 11:16 | PRG ---
DATE OF SERVICE: 07/03/2020 SUBJECTIVE: Mr. Mancilla now has his chest tube to water seal. OBJECTIVE: GENERAL/VITAL SINGS: Blood pressure 133/95, heart rate 87, respiratory rates in the 20s. He is in no distress. He has low-flow O2 via nasal cannula in place. Sats are in the high 90s. Probably can be weaned to room air today. LUNGS: Unchanged. HEART: Unchanged. ABDOMEN: Unchanged. IMPRESSION: Status post thoracoscopic decortication after presentation with a lung abscess and a loculated effusion. Hopefully, he will have the chest tube out within 24 to 48 hours and we can discharge him home. I do plan to switch him to p.o. antibiotics today. Job ID: [id number]
--- NOTE | 2020-07-03 12:24 | PDOC.HOSPP ---
- Subjective Encounter Date: 07/03/20 Encounter Time: 09:00 Subjective: Pt. is in bed in no acute distress. He has been afebrile. He states he still has not been able to have a bowel movement but is beginning to feel gas pains. States his SOB has improved slightly and has not been coughing as much. Denies hemoptysis. He states his pain has also improved significantly. He also hasn't had much of an appetite but has been drinking fluids and Ensure. He has 155 mL of chest tube drainage at this time. - Objective Vital Signs & Weight: Vital Signs (12 hours) Temp Pulse BP Pulse Ox 07/03/20 08:51 87 133/95 H 07/03/20 08:50 133/95 H 07/03/20 07:50 97 07/03/20 07:38 98.2 F 07/03/20 03:40 97.8 F Weight Admit Weight 146 lb 12.8 oz Weight 146 lb 12.8 oz Most Recent Monitor Data Heart Rate from ECG 83 NIBP 125/92 NIBP BP-Mean 103 Respiration from ECG 23 SpO2 98 I&O: 07/02/20 07/03/20 07/04/20 06:59 06:59 06:59 Intake Total 1880 4180 Output Total 1430 1740 Balance 450 2440 Result Diagrams: 07/02/20 03:15 07/03/20 03:21 Hospitalist ROS - Medication Medications: Active Medications Generic Name Dose Route Start Last Admin Trade Name Freq PRN Reason Stop Dose Admin Acetaminophen 650 mg 06/24/20 03:54 06/26/20 19:57 Acetaminophen 325 Mg Tab PO 650 mg Q4H PRN Administration Headache/Fever/Mild Pain (1-3) Hydrocodone Bitart/Acetaminophen 1 tab 06/24/20 03:54 06/26/20 13:31 Hydrocodone/Acetaminophen 10/325 Mg Tablet PO 1 tab Q4H PRN Administration Moderate Pain (4-6) Hydrocodone Bitart/Acetaminophen 2 tab 06/24/20 03:54 07/03/20 08:50 Hydrocodone/Acetaminophen 10/325 Mg Tablet PO 2 tab Q4H PRN Administration Severe Pain (7-10) Amlodipine Besylate 5 mg 06/28/20 09:00 07/03/20 08:51 Amlodipine 5 Mg Tab PO 5 mg BID ROSALES Administration Benzonatate 100 mg 06/24/20 07:54 07/02/20 21:50 Benzonatate 100 Mg Cap PO 100 mg Q6H PRN Administration Cough Enoxaparin Sodium 40 mg 06/24/20 09:00 07/03/20 08:51 Enoxaparin Sodium 40 Mg/0.4 Ml Syringe SC 40 mg 0900 ROSALES Administration Folic Acid 1 mg 06/24/20 09:00 07/03/20 08:50 Folic Acid 1 Mg Tab PO 1 mg DAILY ROSALES Administration Guaifenesin 200 mg 06/24/20 07:54 06/30/20 08:35 Diabetic Tussin 200 Mg/10 Ml Udcup PO 200 mg Q4H PRN Administration Cough Guaifenesin/Dextromethorphan 15 ml 06/24/20 03:54 07/03/20 08:48 Guaifenesin Dm 100-10/5 Ml Udcup PO 15 ml Q4H PRN Administration Cough Ibuprofen 400 mg 06/26/20 22:42 06/28/20 05:41 Ibuprofen 200 Mg Tab PO 400 mg Q6H PRN Administration Fever/Mild Pain Linezolid 600 mg 06/26/20 21:00 07/03/20 08:49 Linezolid 600 Mg Tab PO 600 mg Q12HR ROSALES Administration Lisinopril 20 mg 06/30/20 21:00 07/03/20 08:50 Lisinopril 10 Mg Tab PO 20 mg BID ROSALES Administration Metoprolol Tartrate 25 mg 07/02/20 09:00 07/03/20 08:50 Metoprolol Tartrate 25 Mg Tab PO 25 mg BID ROSALES Administration Morphine Sulfate 4 mg 06/24/20 03:54 07/03/20 05:01 Morphine 4 Mg/Ml Vial SLOW IVP 4 mg Q4H PRN Administration Severe Pain (7-10) Senna/Docusate Sodium 2 tab 06/24/20 07:54 06/26/20 00:08 Senokot S 8.6-50 Mg Tab PO 2 tab BID PRN Administration Constipation Simethicone 80 mg 07/02/20 21:30 07/02/20 21:48 Simethicone Chewable 80 Mg Tab PO 80 mg PCHS PRN Administration Gas Pain Sodium Chloride 10 ml 06/24/20 09:00 07/03/20 10:10 Flush - Normal Saline 10 Ml Syringe IVF Not Given Q12HR ROSALES Thiamine HCl 100 mg 06/24/20 09:00 07/03/20 08:49 Thiamine 100 Mg Tab PO 100 mg DAILY ROSALES Administration - Exam General Appearance: NAD, awake alert Heart: RRR, no murmur, no gallops, no rubs, normal peripheral pulses Respiratory: CTAB, no wheezes, no rales, no ronchi, normal chest expansion, no tachypnea Gastrointestinal: soft, non-tender, non-distended, normal bowel sounds, no palpable masses, no hepatomegaly, no splenomegaly Extremities: no cyanosis, no clubbing, no edema Psychiatric: normal affect, normal behavior, A&O x 3 Hosp A/P (1) Sepsis Code(s): A41.9 - SEPSIS, UNSPECIFIED ORGANISM Status: Acute Qualifiers: Sepsis type: sepsis due to unspecified organism Sepsis acute organ dysfunction status: without acute organ dysfunction Qualified Code(s): A41.9 - Sepsis, unspecified organism (2) Lung abscess Code(s): J85.2 - ABSCESS OF LUNG WITHOUT PNEUMONIA Status: Acute Qualifiers: Pulmonary abscess pneumonia presence: with pneumonia Laterality: left Lung location: lower lobe of lung Qualified Code(s): J85.1 - Abscess of lung with pneumonia (3) Nausea & vomiting Code(s): R11.2 - NAUSEA WITH VOMITING, UNSPECIFIED Status: Acute (4) Alcohol abuse Code(s): F10.10 - ALCOHOL ABUSE, UNCOMPLICATED Status: Chronic - Plan Leukocytosis and fever -Secondary to lung abscess--it does not appear to be drainable scenario.--Both pulmonary and ID following with us. Left lower lobe lung abscess--differentials include: Aspiration: Pt. drinks 12pk/day with jagor shots; episode of vomiting on admission; LLL abscess unusual location Empyema also in the differential we have to check pleural fluid analysis and if pH is less than 7.2 and Gram stain is positive very likely he has empyema. *That has to be ruled out if he clinically get worse he needs thoracentesis. Malignancy: Pt. is smoker 1pk/day since 16 yo; fhx negative for lung cancer, patient denies weight loss; he does have a trace hemoptysis intermittently. Endemic Fungi: Pt denies travel history within last 6 months--so low threshold for cocci and histo Mycobacteria: pt denies visiting prisons however pt. considered immunocompromised due to heavy alcohol use -We will get the QuantiFERON test tomorrow. They do not do it today in the lab. -CT abdomen did not show any visceral abnormality. -Antibiotics switched to clindamycin and he is on Zyvox and meropenem as well.[Before this was on vacomycin and meropenem) -Blood cultures were negative -Sputum showed gram-positive rods as well as gram-positive cocci in clusters. -Syphilis nonreactive so does HIV and hepatitis C and B -Discussed with Dr. Garay. --Ordering CBC w/differential to monitor WBC. -quantiFERON to rule out TB. -Ordering sed rate and procalcitonin -Chest CT w and wo contrast ordered due to continued low-grade fevers 06/29 Persistent parenchymal abscess in the left lower lobe. Increased pleural fluid Worsening pneumonia without clinical digression -Echo report reviewed EF of 55% without any wall motion and valvular abnormalities. -Diagnostic thoracentesis yesterday. - does not appear much pleural fluid removed. -He still has ongoing elevated leukocytosis. Procalcitonin level around 0.64. His C-reactive protein however quite high at 25.9. His creatinine in the normal range. Hypokalemia -Replace He has no fever and clinically nontoxic appearing. Continue with the current antibiotic management. I discussed briefly with the Dr. Garay yesterday. Accelerated hypertension -Norvasc is not helping much we will add lisinopril along with that for optimum control of his blood pressure. Probably due to the acute stress of pneumonia and lung abscess versus underlying uncontrolled hypertension 06/30 Worsening pneumonia despite being on 3 antibiotics. O2 at 93% room air. -CXR new findings show bilateral pneumonia and loculated left pleural effusion -CRP is elevated -Waiting on quantiFERON test results -Rheumatoid, DIANA ordered to rule out autoimmune process. -Pulmonary is evaluating him for thoracotomy/ decortication. Hypertension -BP remains elevated--Lisinopril increased to 20 mg for optimum control. Hypokalemia: -replaced Diarrhea -Check C. difficile if negative then give him loperamide as needed Student's note is edited and discussed the care plan in detail with her. 07/01 Multiloculated pleural effusion Empyema Pneumonia seems to be stabilizing---WBC is trending down, he has been afebrile and O2 >95 -Cardiovascular note reviewed--thoracoscopy for decortication and drainage of LLL abscess--plan to be done today. -quantiFERON, rhematoid, and DIANA results pending -clindamycin and Zyvox and meropenem Diarrhea--C. difficile test came back negative - on Loperamide as needed Patient seen and examined individually. Plan for decortication possibly today by vascular surgery/Dr. Melendez. Discussed the care plan today with the student and agree with the plan for today. 07/02 Multiloculated pleural effusion Empyema -Pt. post-op day 1 thoracoscopy with decortication of LLL abscess --Pt. has been having some low-grade fevers and elevated WBC count--this is expected due to thoracoscopy with decortication procedure --Pt. is sore and unable to move; will start pain medications as well as stool softeners -CXR showed worsening left-sided pleural effusion; stable cardiomegaly of pulmonary vascular congestion suspicious for volume overload --Will be monitoring fluids and dietary intake as well as urine output -Continue clindamycin, Zyvox and meropenem -quantiFERON, rhematoid, and DIANA results still pending. Patient seen and examined today. He has a chest tube draining about 100 mL serous fluid. Patient does have some soreness. Otherwise he is stable. Care discussed with the student and reviewed her notes and edited according to today's plan. 07/03 Multiloculated pleural effusion Empyema -Pt. post-op day 2 thoracoscopy with decortication of LLL abscess. -Preliminary pleural fluid showed no WBC or organisms. -Rheumatoid, DIANA and quantiFERON tests came back negative. -Currently on Zyvox; -clindamycin and meropenem were discontinued Mild Hyponatremia -134 -Likely from net positive fluid intake at 2440 mL -We will monitor for now. He is off salt substitute. Patient seen and examined individually. He is quite ready to participate with the physical therapy. And he is also anxious to go home. Plan discussed with the student and agree with the today's plan.
[2020-07-03] MEDS: Simethicone Chewable 80 MG TAB PO PRN (18:20)
[2020-07-03] MEDS: Amoxicillin/Potassium Clav 875 MG TAB PO SCH (21:01)
[2020-07-04] MEDS: Amoxicillin/Potassium Clav 875 MG TAB PO SCH (08:14)
[2020-07-04] MEDS: Metoprolol Tartrate 25 MG TAB PO SCH (08:14)
[2020-07-04] MEDS: Linezolid 600 MG TAB PO SCH (08:14)
[2020-07-04] MEDS: Folic Acid 1 MG TAB PO SCH (08:14)
[2020-07-04] MEDS: Amlodipine 5 MG TAB PO SCH (08:14)
[2020-07-04] MEDS: Enoxaparin Sodium 40 MG/0.4 ML SYRINGE SC SCH (08:14)
[2020-07-04] MEDS: Guaifenesin DM 100-10/5 ML UDCUP PO PRN (08:15)
[2020-07-04] MEDS: Thiamine 100 MG TAB PO SCH (08:15)
[2020-07-04] MEDS: Lisinopril 10 MG TAB PO SCH (08:15)
--- NOTE | 2020-07-04 10:31 | PDOC.HOSPP ---
- Subjective Encounter Date: 07/04/20 Encounter Time: 08:40 Subjective: Pt. is in bed. He had 1 episode of nausea and vomiting this morning, but states that resolved afterwards. He is still experiencing SOB but notices improvement. Pain is limited to when he coughs. He has had 2 episodes of diarrhea this morning. Chest tube has been removed and he is now on oral antibiotics. - Objective Vital Signs & Weight: Vital Signs (12 hours) Temp Pulse Ox 07/04/20 07:18 99.0 F 07/04/20 04:00 98.0 F 07/04/20 00:15 93 L 07/03/20 23:44 97.7 F 07/03/20 23:00 93 L Weight Admit Weight 146 lb 12.8 oz Weight 146 lb 12.8 oz Most Recent Monitor Data Heart Rate from ECG 96 NIBP 129/83 NIBP BP-Mean 98 Respiration from ECG 36 SpO2 96 I&O: 07/03/20 07/04/20 07/05/20 06:59 06:59 06:59 Intake Total 4180 1430 240 Output Total 1740 1740 1375 Balance 2222 -873 -2904 Result Diagrams: 07/04/20 10:27 07/03/20 03:21 Hospitalist ROS - Medication Medications: Active Medications Generic Name Dose Route Start Last Admin Trade Name Freq PRN Reason Stop Dose Admin Acetaminophen 650 mg 06/24/20 03:54 06/26/20 19:57 Acetaminophen 325 Mg Tab PO 650 mg Q4H PRN Administration Headache/Fever/Mild Pain (1-3) Amlodipine Besylate 5 mg 06/28/20 09:00 07/04/20 08:14 Amlodipine 5 Mg Tab PO 5 mg BID ROSALES Administration Amoxicillin/Clavulanate Potassium 875 mg 07/03/20 21:00 07/04/20 08:14 Amoxicillin/Potassium Clav 875 Mg Tab PO 875 mg Q12HR ROSALES Administration Benzonatate 100 mg 06/24/20 07:54 07/02/20 21:50 Benzonatate 100 Mg Cap PO 100 mg Q6H PRN Administration Cough Enoxaparin Sodium 40 mg 06/24/20 09:00 07/04/20 08:14 Enoxaparin Sodium 40 Mg/0.4 Ml Syringe SC 40 mg 0900 ROSALES Administration Folic Acid 1 mg 06/24/20 09:00 07/04/20 08:14 Folic Acid 1 Mg Tab PO 1 mg DAILY ROSALES Administration Guaifenesin 200 mg 06/24/20 07:54 06/30/20 08:35 Diabetic Tussin 200 Mg/10 Ml Udcup PO 200 mg Q4H PRN Administration Cough Guaifenesin/Dextromethorphan 15 ml 06/24/20 03:54 07/04/20 08:15 Guaifenesin Dm 100-10/5 Ml Udcup PO 15 ml Q4H PRN Administration Cough Ibuprofen 400 mg 06/26/20 22:42 06/28/20 05:41 Ibuprofen 200 Mg Tab PO 400 mg Q6H PRN Administration Fever/Mild Pain Linezolid 600 mg 06/26/20 21:00 07/04/20 08:14 Linezolid 600 Mg Tab PO 600 mg Q12HR ROSALES Administration Lisinopril 20 mg 06/30/20 21:00 07/04/20 08:15 Lisinopril 10 Mg Tab PO 20 mg BID ROSALES Administration Metoprolol Tartrate 25 mg 07/02/20 09:00 07/04/20 08:14 Metoprolol Tartrate 25 Mg Tab PO 25 mg BID ROSALES Administration Senna/Docusate Sodium 2 tab 06/24/20 07:54 06/26/20 00:08 Senokot S 8.6-50 Mg Tab PO 2 tab BID PRN Administration Constipation Simethicone 80 mg 07/02/20 21:30 07/03/20 18:20 Simethicone Chewable 80 Mg Tab PO 80 mg PCHS PRN Administration Gas Pain Sodium Chloride 10 ml 06/24/20 09:00 07/04/20 08:15 Flush - Normal Saline 10 Ml Syringe IVF 10 ml Q12HR ROSALES Administration Thiamine HCl 100 mg 06/24/20 09:00 07/04/20 08:15 Thiamine 100 Mg Tab PO 100 mg DAILY ROSALES Administration - Exam General Appearance: NAD, awake alert Eye: PERRL, anicteric sclera Heart: RRR, no murmur, no gallops, no rubs, normal peripheral pulses Respiratory: CTAB, no wheezes, no rales, normal chest expansion, no tachypnea, rhonchi Gastrointestinal: soft, non-tender, non-distended, normal bowel sounds, no palpable masses, no hepatomegaly, no splenomegaly, no bruit Skin: normal turgor, no lesions, no rashes Psychiatric: normal affect, normal behavior, A&O x 3 Hosp A/P (1) Sepsis Code(s): A41.9 - SEPSIS, UNSPECIFIED ORGANISM Status: Acute Qualifiers: Sepsis type: sepsis due to unspecified organism Sepsis acute organ dysfunc tion status: without acute organ dysfunction Qualified Code(s): A41.9 - Sepsis, unspecified organism (2) Lung abscess Code(s): J85.2 - ABSCESS OF LUNG WITHOUT PNEUMONIA Status: Acute Qualifiers: Pulmonary abscess pneumonia presence: with pneumonia Laterality: left Lung location: lower lobe of lung Qualified Code(s): J85.1 - Abscess of lung with pneumonia (3) Nausea & vomiting Code(s): R11.2 - NAUSEA WITH VOMITING, UNSPECIFIED Status: Acute (4) Alcohol abuse Code(s): F10.10 - ALCOHOL ABUSE, UNCOMPLICATED Status: Chronic - Plan Leukocytosis and fever -Secondary to lung abscess--it does not appear to be drainable scenario.--Both pulmonary and ID following with us. Left lower lobe lung abscess--differentials include: Aspiration: Pt. drinks 12pk/day with jagor shots; episode of vomiting on admission; LLL abscess unusual location Empyema also in the differential we have to check pleural fluid analysis and if pH is less than 7.2 and Gram stain is positive very likely he has empyema. *That has to be ruled out if he clinically get worse he needs thoracentesis. Malignancy: Pt. is smoker 1pk/day since 16 yo; fhx negative for lung cancer, patient denies weight loss; he does have a trace hemoptysis intermittently. Endemic Fungi: Pt denies travel history within last 6 months--so low th reshold for cocci and histo Mycobacteria: pt denies visiting prisons however pt. considered immunoc ompromised due to heavy alcohol use -We will get the QuantiFERON test tomorrow. They do not do it today in the lab. -CT abdomen did not show any visceral abnormality. -Antibiotics switched to clindamycin and he is on Zyvox and meropenem as well.[Before this was on vacomycin and meropenem) -Blood cultures were negative -Sputum showed gram-positive rods as well as gram-positive cocci in clusters. -Syphilis nonreactive so does HIV and hepatitis C and B -Discussed with Dr. Garay. --Ordering CBC w/differential to monitor WBC. -quantiFERON to rule out TB. -Ordering sed rate and procalcitonin -Chest CT w and wo contrast ordered due to continued low-grade fevers 06/29 Persistent parenchymal abscess in the left lower lobe. Increased pleural fluid Worsening pneumonia without clinical digression -Echo report reviewed EF of 55% without any wall motion and valvular abnormalities. -Diagnostic thoracentesis yesterday. - does not appear much pleural fluid removed. -He still has ongoing elevated leukocytosis. Procalcitonin level around 0.64. His C-reactive protein however quite high at 25.9. His creatinine in the normal range. Hypokalemia -Replace He has no fever and clinically nontoxic appearing. Continue with the current antibiotic management. I discussed briefly with the Dr. Garay yesterday. Accelerated hypertension -Norvasc is not helping much we will add lisinopril along with that for optimum control of his blood pressure. Probably due to the acute stress of pneumonia and lung abscess versus underlying uncontrolled hypertension 06/30 Worsening pneumonia despite being on 3 antibiotics. O2 at 93% room air. -CXR new findings show bilateral pneumonia and loculated left pleural effusion -CRP is elevated -Waiting on quantiFERON test results -Rheumatoid, DIANA ordered to rule out autoimmune process. -Pulmonary is evaluating him for thoracotomy/ decortication. Hypertension -BP remains elevated--Lisinopril increased to 20 mg for optimum control. Hypokalemia: -replaced Diarrhea -Check C. difficile if negative then give him loperamide as needed Student's note is edited and discussed the care plan in detail with her. 07/01 Multiloculated pleural effusion Empyema Pneumonia seems to be stabilizing---WBC is trending down, he has been afebrile and O2 >95 -Cardiovascular note reviewed--thoracoscopy for decortication and drainage of LLL abscess--plan to be done today. -quantiFERON, rhematoid, and DIANA results pending -clindamycin and Zyvox and meropenem Diarrhea--C. difficile test came back negative - on Loperamide as needed Patient seen and examined individually. Plan for decortication possibly today by vascular surgery/Dr. Melendez. Discussed the care plan today with the student and agree with the plan for today. 07/02 Multiloculated pleural effusion Empyema -Pt. post-op day 1 thoracoscopy with decortication of LLL abscess --Pt. has been having some low-grade fevers and elevated WBC count--this is expected due to thoracoscopy with decortication procedure --Pt. is sore and unable to move; will start pain medications as well as stool softeners -CXR showed worsening left-sided pleural effusion; stable cardiomegaly of pulmonary vascular congestion suspicious for volume overload --Will be monitoring fluids and dietary intake as well as urine output -Continue clindamycin, Zyvox and meropenem -quantiFERON, rhematoid, and DIANA results still pending. Patient seen and examined today. He has a chest tube draining about 100 mL serous fluid. Patient does have some soreness. Otherwise he is stable. Care discussed with the student and reviewed her notes and edited according to today's plan. 07/03 Multiloculated pleural effusion Empyema -Pt. post-op day 2 thoracoscopy with decortication of LLL abscess. -Preliminary pleural fluid showed no WBC or organisms. -Rheumatoid, DIANA and quantiFERON tests came back negative. -Currently on Zyvox; -clindamycin and meropenem were discontinued Mild Hyponatremia -134 -Likely from net positive fluid intake at 2440 mL -We will monitor for now. He is off salt substitute. Patient seen and examined individually. He is quite ready to participate with the physical therapy. And he is also anxious to go home. Plan discussed with the student and agree with the today's plan. 07/04 Multiloculated pleural effusion/Empyema -Pt. post-op day 3 thoracoscopy with decortication of LLL abscess. -Pt. chest tube has been removed and is now on oral augmentin and linezolid Thrombocytosis-[id number] -Reactive versus other -Repeating the CBC -Started him on low-dose aspirin 81 mg daily---ASA for thrombosis prophylaxis -Consulted hematology. -Physical therapy is involved in his care as well. -Stable to Transfer to medical floor. Care discussed with the student and agree with today's plan.
[2020-07-04 11:07] LABS: Hemoglobin 11.9 g/dL (14.0-18.0); Mean Corpuscular HGB CONC 34.2 g/dL (32.0-36.0); Mean Corpuscular Hemoglobin 35.7 pg (27.0-31.0); Mean Platelet Volume 6.5 fL (7.4-10.4); Platelet Count 941 thou/uL (130-400); RBC Distribution Width 12.9 % (11.5-14.5); Red Blood Cell (RBC) Count 3.32 mill/uL (4.70-6.10); White Blood Cell (WBC) Count 17.7 thou/uL (4.8-10.8)
[2020-07-04 11:13] VITALS: BP 139/101
[2020-07-04 11:20] VITALS: TEMP 97
[2020-07-04 11:25] LABS: Eosinophils 3 % (0-10); Giant Platelets SLIGHT; Hypochromia SLIGHT = 6-15 cells (100X) (0-5/hpf); Lymphocytes 10 % (21-51); MDiff Complete? YES; Monocytes 5 % (0-10); Neutrophil 82 % (42-75); Platelet Morphology Comment Appears Increased; Target Cells SLIGHT = 2-5 cells (100X) (0-1/hpf)
[2020-07-04 12:24] LABS: Hemoglobin 12.1 g/dL (14.0-18.0); Mean Corpuscular HGB CONC 32.5 g/dL (32.0-36.0); Mean Corpuscular Hemoglobin 34.3 pg (27.0-31.0); Mean Platelet Volume 6.3 fL (7.4-10.4); Platelet Count 986 thou/uL (130-400); Red Blood Cell (RBC) Count 3.54 mill/uL (4.70-6.10); White Blood Cell (WBC) Count 18.7 thou/uL (4.8-10.8)
[2020-07-04 12:52] LABS: Band 9 % (5-11); Lymphocytes 4 % (21-51); MDiff Complete? YES; Macrocytosis SLIGHT = 6-15 cells (100X) (0-5/hpf); Monocytes 7 % (0-10); Neutrophil 80 % (42-75); Platelet Morphology Comment Appears Increased; Polychromasia SLIGHT = 2-3 cells (100X) (0-2/hpf); Target Cells SLIGHT = 2-5 cells (100X) (0-1/hpf)
--- NOTE | 2020-07-04 13:41 | PDOC.DS.DS ---
Provider - Provider Date of Admission: 06/24/20 03:42 Admitting Provider: Saul Rader Primary Care Physician: Unknown Course - Hospital Course Hospital Course: 50-year-old male presented with: (1) Sepsis Code(s): A41.9 - SEPSIS, UNSPECIFIED ORGANISM Status: Acute Qualifiers: Sepsis type: sepsis due to unspecified organism Sepsis acute organ dysfunction status: without acute organ dysfunction Qualified Code(s): A41.9 - Sepsis, unspecified organism (2) Lung abscess Code(s): J85.2 - ABSCESS OF LUNG WITHOUT PNEUMONIA Status: Acute Qualifiers: Pulmonary abscess pneumonia presence: with pneumonia Laterality: left Lung location: lower lobe of lung Qualified Code(s): J85.1 - Abscess of lung with pneumonia (3) Nausea & vomiting Code(s): R11.2 - NAUSEA WITH VOMITING, UNSPECIFIED Status: Acute (4) Alcohol abuse Code(s): F10.10 - ALCOHOL ABUSE, UNCOMPLICATED Status: Chronic Multiloculated pleural effusion/Empyema -Pt. post-op day 3 thoracoscopy with decortication of LLL abscess. -Pt. chest tube has been removed and is now on oral augmentin -Clinically doing well. Reactive thrombocytosis even though the numbers are increasing up to almost 1 million. -Charged him with baby aspirin and follow-up with his CBC in 2 weeks. -Hematology aware of the platelet level and they also feel this is mainly reactive thrombocytosis. Patient is clinically stable to be discharged home today. Request for primary care physician--- to check a CBC in 2 weeks time. If the platelet count did not decrease then consider hematology clinic follow-up with Dr. Brown. Discharge time over 30 minutes including today's rounding and progress note. Resuscitation Status: 06/24/20 03:37 Resuscitation Status Routine Resuscitation Status: FULL: Full Resuscitation - Labs Lab Results: 07/04/20 12:14 07/03/20 03:21 Abnormal Lab Results - Last 48 hrs 07/03/20 03:21: Sodium 134 L, BUN 6 L 07/04/20 10:27: WBC 17.7 H, RBC 3.32 L, Hgb 11.9 L, Hct 34.7 L, MCV 104.0 H, MCH 35.7 H, Plt Count 941 H*, MPV 6.5 L, Neutrophils % (Manual) 82 H, Lymphocytes % (Manual) 10 L, Plt Morphology Comment Appears Increased H 07/04/20 12:14: WBC 18.7 H, RBC 3.54 L, Hgb 12.1 L, Hct 37.4 L, MCV 106.0 H, MCH 34.3 H, Plt Count 986 H*, MPV 6.3 L, Neutrophils % (Manual) 80 H, Lymphocytes % (Manual) 4 L, Plt Morphology Comment Appears Increased H Microbiology - Entire Visit 07/01/20 13:34 Pleural fluid Body Fluid Culture - Preliminary 07/01/20 07:18 Stool C. difficile GDH Antigen & Toxins - Final 06/24/20 01:57 Venous blood - Right Arm Blood Culture - Final NO GROWTH IN 5 DAYS 06/24/20 01:45 Venous blood - Left Arm Blood Culture - Final NO GROWTH IN 5 DAYS 06/24/20 22:13 Sputum Respiratory Culture - Final 06/24/20 10:50 Sputum Respiratory Culture - Final - Physical Exam Vitals: Vital Signs (12 hours) Temp Pulse Pulse BP BP Pulse Ox Pulse Ox 07/04/20 11:19 97.0 F L 07/04/20 09:01 100 100 139/101 H 149/107 H 92 L 97 07/04/20 07:18 99.0 F 07/04/20 04:00 98.0 F Weight Admit Weight 146 lb 12.8 oz Weight 146 lb 12.8 oz Most Recent Monitor Data Heart Rate from ECG 90 NIBP 149/91 NIBP BP-Mean 110 Respiration from ECG 23 SpO2 98 Physical Exam: The patient was seen and examined on the day of discharge. Problem - Problem (1) Sepsis Code(s): A41.9 - SEPSIS, UNSPECIFIED ORGANISM Status: Acute Qualifiers: Sepsis type: sepsis due to unspecified organism Sepsis acute organ dysfunction status: without acute organ dysfunction Qualified Code(s): A41.9 - Sepsis, unspecified organism (2) Lung abscess Code(s): J85.2 - ABSCESS OF LUNG WITHOUT PNEUMONIA Status: Acute Qualifiers: Pulmonary abscess pneumonia presence: with pneumonia Laterality: left Lung location: lower lobe of lung Qualified Code(s): J85.1 - Abscess of lung with pneumonia (3) Nausea & vomiting Code(s): R11.2 - NAUSEA WITH VOMITING, UNSPECIFIED Status: Acute (4) Alcohol abuse Code(s): F10.10 - ALCOHOL ABUSE, UNCOMPLICATED Status: Chronic Plan - Discharge Medications Prescriptions: Aspirin 81 mg PO DAILY 30 Days #30 tab.chew Amoxicillin/Potassium Clav [Augmentin] 875 mg PO Q12HR 10 Days #20 tab Amlodipine [Norvasc] 5 mg PO BID 30 Days #60 tab Home Medications: Medication Instructions Recorded Confirmed Type Amlodipine [Norvasc] 5 mg PO BID 30 Days #60 tab 07/04/20 Rx Amoxicillin/Potassium Clav 875 mg PO Q12HR 10 Days #20 tab 07/04/20 Rx [Augmentin] Aspirin 81 mg PO DAILY 30 Days #30 tab.chew 07/04/20 Rx Allergies: No Known Drug Allergies Allergy (Verified 06/24/20 05:50) - Discharge Instructions Discharge Instructions:: PCP to check your level of platelets in 2 weeks. If it is not improving then please call Dr. Brown at hematology clinic for an appointment. Follow with your primary care in 1 week. Activity:: Activity as Tolerated Nourishment:: Heart Healthy Diet - Follow up Plan Referrals: Unknown,Unknown [Primary Care Provider] - Disposition: HOME Quality - Care Measures CORE MEASURES:: N/A
--- NOTE | 2020-07-04 17:07 | PRG ---
DATE OF SERVICE: 07/04/2020 SUBJECTIVE: Nikhil Mancilla's chest tube is out. He is afebrile. He says he feels great. He has been ambulating in the room. His room air oximetry is in the low to mid 90s. OBJECTIVE: LUNGS: Unchanged. HEART: Unchanged. ABDOMEN: Unchanged. I have written a prescription for 2 weeks more of Augmentin. He will follow up with me in 3 to 4 weeks for a chest x-ray. Job ID: [id number]
[2020-07-05] MEDS ORDERED: Aspirin 81 mg Enteric Coated Tablet PO SCH (09:00)
== END 2020-07-04 14:24 | disposition home or self-care (01) | DRG 853 ==
LOC: ERS 01:02 → T4-B 03:42 → SURG B 07-01 17:35 → IMCU/EMU 07-01 20:17
PROVIDERS: ADMIT Internal Medicine; ATTEND Internal Medicine
PROC: 0W9B3ZZ Drainage of Left Pleural Cavity, Percutaneous Approach (ICD-10-PCS; 2020-06-28)
PROC: 0BNL4ZZ Release Left Lung, Percutaneous Endoscopic Approach (ICD-10-PCS; principal; 2020-07-01)
DX: A41.9 Sepsis, unspecified organism (principal); J85.1 Abscess of lung with pneumonia; J90 Pleural effusion, not elsewhere classified; Z20.828 Contact with and (suspected) exposure to other viral communicable diseases; F17.210 Nicotine dependence, cigarettes, uncomplicated; F12.10 Cannabis abuse, uncomplicated; F10.20 Alcohol dependence, uncomplicated; I10 Essential (primary) hypertension; D69.6 Thrombocytopenia, unspecified; E87.6 Hypokalemia; R19.7 Diarrhea, unspecified; R50.82 Postprocedural fever
CPT/HCPCS: 36415; 71045; 71260; 71275; 74177; 80048; 80053; 80076; 80202; 81001; 82607; 82746; 83520; 83605; 83690; 84145; 84443; 84484; 85007; 85025; 85027; 85652; 86038; 86140; 86200; 86225; 86480; 86780; 86803; 87040; 87070; 87205; 87324; 87340; 87389; 87449; 87635; 93005; 93306; 96365; 96367; 96368; 96375; J0456; J0692; J0696; J1170; J1642; J1650; J2185; J2250; J2270; J2405; J2704; J2930; J3010; J3370; J3490; J7050; Q9967; U0003

== ENCOUNTER 2020-08-04 14:37 | Outpatient (CLI) | payer OTHER ==
--- NOTE | 2020-08-04 14:56 | RAD ---
EXAM: CHEST TWO VIEWS 08/04/2020 2:52 PM HISTORY: History of empyema COMPARISON: Prior exam dated July 02, 2020 FINDINGS: Lungs: There is improved aeration of the left lung. There is mild residual subsegmental atelectasis involving the left lower lobe. Left-sided thoracostomy tubes have been removed. Heart: Normal in size and contour. Pulmonary Vessels: Normal. Costophrenic Angles: Small loculated effusion remains involving the left lower hemithorax. Pneumothorax: None. Osseous Structures: Intact. Additional Findings: None. IMPRESSION: Improving loculated left-sided pleural effusion. Small left pleural effusion remains. Mild left basil ar atelectasis remains. Right lung is clear.
== END 2020-08-04 14:38 | disposition home or self-care (01) ==
LOC: BICRAD 14:37
PROVIDERS: ATTEND Thoracic Surgery (Cardiothoracic Vascular Surgery)
DX: J86.9 Pyothorax without fistula (principal); J90 Pleural effusion, not elsewhere classified; J98.11 Atelectasis
CPT/HCPCS: 71046